=== PATIENT | female | born 1960 | race Caucasian/White ===

== ENCOUNTER 2024-06-08 12:58 | Emergency (ER) | payer OTHER, SELFPAY ==
[2024-06-08 13:00] VITALS: BP 149/77
[2024-06-08 13:12] VITALS: BP 144/74
[2024-06-08 13:18] VITALS: BMI 32.6
[2024-06-08 13:33] LABS: % Basophils 0.8 % (0-2); % Immature Granulocytes 0.2 % (0-0.5); % Lymphocytes 31.9 % (20.5-51.1); % Neutrophils 55.1 % (42.2-75.2); Absolute Basophils 0.1 10^3/uL (0-0.2); Absolute Eosinophils 0.3 10^3/uL (0-0.7); Absolute Lymphocytes 2.1 10^3/uL (1.2-3.4); Absolute Monocytes 0.5 10^3/uL (0.1-0.6); Absolute Neutrophils 3.7 10^3/uL (1.4-6.5); Hematocrit 39.4 % (37.0-47.0); Hemoglobin 13.6 g/dL (12.0-16.0); Mean Corp Hgb Conc. 34.5 g/dL (33.0-37.0); Mean Platelet Volume 9.1 fL (7.4-10.4); Nucleated Red Blood Cells % 0 %; Platelet Count 198 10^3/uL (130-400); Red Blood Cell Count 4.69 10^6/uL (4.20-5.40); Red Cell Dist. Width 12.7 % (11.5-14.5); White Blood Cell Count 6.6 10^3/uL (4.8-10.8)
[2024-06-08 13:44] LABS: INR 0.91; PT 12.6 Sec (11.4-14.6)
--- NOTE | 2024-06-08 13:44 | ED.GENMED ---
History of Present Illness
<Danie Alvarado PA-C - Last Filed: 06/08/24 17:36>
General
Chief Complaint: Chest Pain
Source: patient
Exam Limitations: none
Time Seen by Provider: 06/08/24 13:31
History of Present Illness
History of Present Illness:
63-year-old female presents with onset of crushing chest pain that radiated down the arm that started about 2 and half to 3 hours prior to my exam. She was sitting at her desk working when it started. She now notes there is still pressure on her
chest but it is radiating to her scapula on the left side. No pleuritic component. No recent surgery or travel. She has a history of rheumatoid arthritis. She has a strong family history of cardiac disease. She does not smoke. No other
complaints at this
Past History
<Danie Alvarado PA-C - Last Filed: 06/08/24 17:36>
Past History
ED Past Medical History: Psychiatric (Depression), Other (Patellar dislocations), Other (rheumatoid arthritis, DVT after knee surgery no longer taking Warfarin) and Other (Previous dislocated thumb, ovarian cysts,)
ED Past Surgical History: Appendectomy, Gynecological (Hysterectomy) and Orthopedic
Social History
Tobacco: Former smoker
Alcohol: Occasional
Drug: None
Personal:
Living: with family
Employment: Employed
Family History
Family History: CAD
Phy Exam
<Danie Alvarado PA-C - Last Filed: 06/08/24 17:36>
Physical Exam
Physical Exam:
General: Well-appearing female no acute respiratory distress
HEENT: Normocephalic atraumatic
Heart: Regular rate and rhythm
Lungs: Clear no wheeze
Abdomen is soft nontender nondistended
Extremities: No cyanosis or edema
Scores
<Danie Alvarado PA-C - Last Filed: 06/08/24 17:36>
Heart Score for Chest Pain Patients
STEMI patient?: No
History: Slightly or Non-Suspicious
ECG: Normal
Age: >45 - <65 years
Risk Factors: 1 or 2 Risk Factors
Troponin: </= Normal Limit
Heart Score for Chest Pain Patients: 2
Heart Score Risk: 2.5% MACE over next 6 weeks
Course
<Danie Alvarado PA-C - Last Filed: 06/08/24 17:36>
Orders/Labs/Results
Orders:
Orders
06/08/24 12:59
EKG [Electrocardiogram (*1)] Urgent
Reason for Study: Chest Pain
EKG- Treatment ONCE
06/08/24 13:25
Complete Blood Count/With Diff Urgent
Comprehensive Metabolic Panel Urgent
PT/INR [Prothrombin Time] Urgent
PTT Urgent
Troponin I Urgent
06/08/24 13:42
CT Chest Angio W/wo Iv Contras Urgent
Comment:
Reason For Exam: chest and scapular pain radiating down arm
06/08/24 15:01
Acetaminophen [Tylenol] 1,000 mg PO NOW STA
06/08/24 15:57
Troponin I Urgent
06/08/24 17:27
Ketorolac [Toradol] 15 mg IV NOW STA
Abnormal Lab Results
06/08/24
13:25
BUN 18 H mg/dl
(7-17)
Glucose 123 H mg/dl
(70-99)
06/08/24 13:25
06/08/24 13:25
Vital Signs
Initial and Last Documented VS:
Initial Vital Signs
Temp Pulse Resp BP Pulse Ox
98.5 F 89 20 149/77 95
06/08/24 13:00 06/08/24 13:00 06/08/24 13:00 06/08/24 13:00 06/08/24 13:00
Last Documented Vital Signs
Temp Pulse Resp BP Pulse Ox
98.5 F 76 18 127/70 96
06/08/24 13:00 06/08/24 16:30 06/08/24 16:30 06/08/24 16:00 06/08/24 16:30
<Curtis Lucero MD - Last Filed: 06/08/24 13:54>
Orders/Labs/Results
Orders:
Orders
06/08/24 12:59
EKG [Electrocardiogram (*1)] Urgent
Reason for Study: Chest Pain
EKG- Treatment ONCE
06/08/24 13:25
Complete Blood Count/With Diff Urgent
Comprehensive Metabolic Panel Urgent
PT/INR [Prothrombin Time] Urgent
PTT Urgent
Troponin I Urgent
06/08/24 13:42
CT Chest Angio W/wo Iv Contras Urgent
Comment:
Reason For Exam: chest and scapular pain radiating down arm
06/08/24 15:01
Acetaminophen [Tylenol] 1,000 mg PO NOW STA
06/08/24 15:57
Troponin I Urgent
06/08/24 17:27
Ketorolac [Toradol] 15 mg IV NOW STA
Abnormal Lab Results
06/08/24
13:25
BUN 18 H mg/dl
(7-17)
Glucose 123 H mg/dl
(70-99)
06/08/24 13:25
06/08/24 13:25
Vital Signs
Initial and Last Documented VS:
Initial Vital Signs
Temp Pulse Resp BP Pulse Ox
98.5 F 89 20 149/77 95
06/08/24 13:00 06/08/24 13:00 04/18/25 13:00 06/08/24 13:00 06/08/24 13:00
Last Documented Vital Signs
Temp Pulse Resp BP Pulse Ox
98.5 F 76 18 127/70 96
06/08/24 13:00 06/08/24 16:30 06/08/24 16:30 06/08/24 16:00 06/08/24 16:30
<Danie Alvarado PA-C - Last Filed: 06/08/24 17:36>
MDM/Problems Addressed
Differential Diagnosis Includes:
Chest pain with arm and scapular pain. Consider ACS versus dissection versus PE
EKG through triage shows sinus rhythm with a rate of 92 no ischemic changes
Given symptoms radiating to the scapula and ongoing discomfort CT angio of the chest was ordered. Troponin is pending.
<Danie Alvarado PA-C - Last Filed: 06/08/24 17:36>
*Critical Care Note
Total Time (30-74mins, 75-104mins- exclusive of procedures): Not Applicable
<Danie Alvarado PA-C - Last Filed: 06/08/24 17:36>
Update Note
Update Note:
Initial and repeat troponins undetectable. Given the quality of the discomfort radiating to the shoulder blade did a CT angio of the chest which is negative for acute finding. There were small less than 5 mm nodules. I did notify the patient
this. Toradol given for discomfort. Question possible radiculopathy but either way we will follow-up with cardiology.
ED Attending Note
<Danie Alvarado PA-C - Last Filed: 06/08/24 17:36>
-
Portions of this chart may have been created with voice recognition software.� Occasional wrong word or��sound alike� substitutions may have occurred due to the inherent limitations of voice recognition software.
<Curtis Lucero MD - Last Filed: 06/08/24 13:54>
ED Attending Note
Patient seen and examined by attending physician: Yes
I performed the substantive portion of visit, reviewed & personally made and approve the management plan that is documented in note by myself or JOLYNN.: Yes
ED Attending Note:
63-year-old female relatively sudden onset of left upper chest pressure to the upper arm and scapular area. Started about 11 AM. Continuous although much improved. Had an episode of nausea and vomiting with it. Did not think she was truly short
of breath with it more got upset. No history of same. Patient has had ongoing cough for months. However this pain is not increased with coughing twisting turning or breathing. Symptoms are mild at this time.
GENERAL: Alert and oriented in no apparent distress
EYE: Orbits normal.
NECK: Supple
CARDIAC: Regular rate and rhythm without any obvious murmurs. Good upper extremity pulses
LUNGS: Clear breath sounds,normal
ABDOMEN: Soft, without focal tenderness or distention
NEUROLOGICAL: Alert and oriented , grossly non-focal
SKIN: Warm and dry, no rash or lesion, no discoloration, skin intact. Scar right wrist
MUSCULOSKELETAL: No edema,no deformity.Good color
PSYCH: Normal and appropriate interaction.
Sudden onset nonexertional chest pressure with radiation of the scapula and upper arm. Differential including cardiac dissection PE. Workup in progress. Nonexertional.
Discharge Plan
Departure
Patient Disposition: Home (Routine Discharge)
Date of Disposition: 06/08/24
Time of Disposition: 17:34
Patient with high blood pressure during this ER visit?: No
Discharge Problem:
Chest pain
Instructions: Chest Pain CBC Follow Up
Prescriptions:
No Action
bupropion HCl 150 MG tablet extended release 24 hr
300 mg PO DAILY
dextroamphetamine-amphetamine [Adderall XR] 20 MG capsule,extended release 24hr
40 mg PO DAILY
metformin 500 MG tablet
1,000 mg PO DAILY@1700
sennosides [senna] 1 TABLET tablet
2 tab PO BID 0RF
polyethylene glycol 3350 17 GRAMS powder in packet
17 grams PO DAILY 0RF
magnesium hydroxide 30 ML suspension
30 ml PO DAILYPRN PRN (Reason: constipation) 0RF
docusate sodium 100 MG capsule
100 mg PO BID 0RF
oxycodone 5 MG tablet
5 mg PO Q4HPRN PRN (Reason: moderate-severe pain) Qty: 90 0RF
Rx Instructions:
dx tka
1-2 tabs
ongoing therapy
adalimumab [Humira] 40 MG/0.8 ML syringe kit
40 mg SC Q2W Qty: 0 0RF
Rx Instructions:
when ortho advises
prednisone 10 MG tablet
40 mg PO .TAPER Qty: 14 0RF
Rx Instructions:
4 tabs day1, 3 tabs day2, 2 tabs day3, 1 tab daily x5 days--then stop
famotidine 20 MG tablet
20 mg PO HS Qty: 0 0RF
Referrals:
UNKNOWN - PT DOES,NOT KNOW [Family Provider] -
Activity Restrictions/Additional Instructions:
Continue with Tylenol or ibuprofen for pain. Follow-up with cardiology. Return if worse otherwise
Interventions
Interventions:
*Risk Screen - Suicide Last Done: 06/08/24 13:00
*General Assessment Last Done: 06/08/24 13:00
*Neglect/Abuse Screening Last Done: 06/08/24 13:40
*ED- Fall Risk Assessment Last Done: 06/08/24 13:39
*ED COVID-19 Vaccine History Last Done: 06/08/24 13:39
ED- Cardiac Assessment Last Done: 06/08/24 13:40
Discharge Date and Time
Print Language: YAKUT
[2024-06-08 13:45] LABS: APTT 27.6 Sec (23.4-35.0)
[2024-06-08 13:46] LABS: ALT (SGPT) 24 U/L (0-35); AST (SGOT) 23 U/L (14-36); Albumin 4.8 g/dl (3.5-5.0); Alkaline Phosphatase 76 U/L (38-126); Blood Urea Nitrogen 18 mg/dl (7-17); Calcium 9.6 mg/dl (8.4-10.2); Carbon Dioxide 25 mmol/L (22-30); Chloride 107 mmol/L (98-107); Estimated Creatinine Clearance 68 ml/min; Glucose 123 mg/dl (70-99); Potassium 4.1 mmol/L (3.5-5.1); Sodium 144 mmol/L (135-145); Total Bilirubin 0.7 mg/dl (0.2-1.3); eGFR > 60.00
[2024-06-08 13:57] LABS: Troponin I < 0.012 ng/ml
[2024-06-08 14:00] VITALS: BP 133/75
[2024-06-08 15:00] VITALS: BP 130/70
[2024-06-08] MEDS: TYLENOL 1000 MG PO (15:06)
[2024-06-08 16:00] VITALS: BP 127/70
[2024-06-08 16:34] LABS: Troponin I < 0.012 ng/ml
[2024-06-08 17:00] VITALS: BP 137/75
[2024-06-08] MEDS: TORADOL 15 MG IV (17:45)
== END 2024-06-08 18:59 | disposition home or self-care (01) ==
LOC: EMR 12:58
PROVIDERS: Physician Assistant; EMERGENCY PHYSICIAN Emergency Medicine
DX: R07.89 Other chest pain (principal); M06.9 Rheumatoid arthritis, unspecified; Z82.49 Family history of ischemic heart disease and other diseases of the circulatory system; Z86.718 Personal history of other venous thrombosis and embolism; Z87.891 Personal history of nicotine dependence; Z90.49 Acquired absence of other specified parts of digestive tract; Z90.710 Acquired absence of both cervix and uterus
CPT/HCPCS: 99284; 71275; 80053; 84484; 85025; 85610; 85730; 93005; Q9967

== ENCOUNTER 2024-07-23 10:34 | Inpatient (IN) | payer OTHER, SELFPAY ==
[2024-07-23] VITALS (11 sets, daily range): BP systolic 79–137; BP diastolic 14–73; BMI 32.2; BMI 31.8
--- NOTE | 2024-07-23 07:40 | ED.GENMED ---
History of Present Illness
General
Chief Complaint: Abdominal Pain
Source: patient
Exam Limitations: none
Time Seen by Provider: 07/23/24 07:19
History of Present Illness
History of Present Illness:
64yoF with a history of rheumatoid arthritis receiving Simponi Aria infusions presenting with her for evaluation of rectal pain. Symptoms began 8 days ago with fevers. She has been experiencing fevers of 101-102 throughout the week. Home
COVID and flu tests were negative. She started to have rectal pain 3 days ago that is worse with sitting. She does not believe she is constipated and had a normal bowel movement yesterday. She started having worsening rectal pain this morning so
decided to come to the ED. Her fevers do seem to be better today. She denies any URI symptoms, vomiting, dysuria, rectal pain, rashes. No known sick contacts or recent travel. Previous abdominal surgeries include an appendectoy, cholecystectomy,
hysterectomy, and bladder lift procedure.
Past History
Past History
ED Past Medical History: Psychiatric (Depression), Other (Patellar dislocations), Other (rheumatoid arthritis, DVT after knee surgery no longer taking Warfarin) and Other (Previous dislocated thumb, ovarian cysts,)
ED Past Surgical History: Appendectomy, Gynecological (Hysterectomy) and Orthopedic
Social History
Tobacco: Former smoker
Alcohol: Occasional
Drug: None
Personal:
Living: with family
Employment: Employed
Family History
Family History: CAD
Phy Exam
General Physical Exam
General Presentation: well appearing and no apparent distress
General Skin: warm and dry
General Habitus: normal
General Mental: alert
ENT Exam
ENT Exam: normocephalic
Cardiovascular Exam
Cardiovascular Exam: regular rate/rhythm and no murmur
Pulmonary Exam
Pulmonary Exam: lungs clear, no respiratory distress, no rales, no crackles, no rhonchi and no wheezing
Gastrointestinal Exam
Gastrointestinal Exam: soft, non distended and other (+LLQ tenderness. Abdomen soft without guarding.)
Rectal Exam: other (Soft light brown stool on rectal exam. No impaction palpated. No visualized perirectal abscess. Pain elicited with FABIO.)
Neurological Exam
Neurological Exam: alert
[place] Coma Scale
Eye Opening: Spontaneous
Verbal Response: Oriented
Motor Response: Obeys Commands
GCS Total Score: 15
Skin Exam
Skin Exam: normal color and warm/dry
Psychiatric Exam
Psychiatric Exam: normal mood/affect
Course
Orders/Labs/Results
Orders:
Orders
07/23/24 07:36
CT Abd/pelvis W Iv Cont Urgent
Comment:
Reason For Exam: LLQ pain, rectal pain, fever
Urinalysis Reflex To Culture Urgent
Date Specimen was Collected: 07/23/24
Time Specimen was Collected: 07:45
0.9% Sodium Chloride 1000 ml [Nss] 1,000 ml IV BOLUS
07/23/24 07:46
Complete Blood Count/With Diff Urgent
Comprehensive Metabolic Panel Urgent
Lactate Level [Lactic Acid] Urgent
Lipase Urgent
Blood Culture Q30M
TRISHA Source: Blood/Venous
Specimen Description:
Blood Culture Q30M
TRISHA Source: Blood/Venous
Specimen Description:
07/23/24 09:08
CefTRIAXone [Rocephin] 2,000 mg IV NOW STA
HYDROmorphone [Dilaudid] 0.5 mg IV NOW STA
MetroNIDAZOLE 500 MG/100 ML [Flagyl 500 mg] 100 ml IV NOW
Abnormal Lab Results
07/23/24
07:46
RBC 3.97 L 10^6/uL
(4.20-5.40)
Hgb 11.3 L g/dL
(12.0-16.0)
Hct 34.3 L %
(37.0-47.0)
MCHC 32.9 L g/dL
(33.0-37.0)
Lymphocytes % 20.4 L %
(20.5-51.1)
Chloride 112 H mmol/L
(98-107)
Glucose 135 H mg/dl
(70-99)
Lactic Acid 2.3 H mmol/L
(0.7-2.0)
07/23/24 07:46
07/23/24 07:46
Vital Signs
Initial and Last Documented VS:
Initial Vital Signs
Temp Pulse Resp BP Pulse Ox
98.5 F 95 16 103/73 98
07/23/24 06:56 07/23/24 06:56 07/23/24 06:56 07/23/24 06:56 07/23/24 06:56
Last Documented Vital Signs
Temp Pulse Resp BP Pulse Ox
98.5 F 95 16 106/59 96
07/23/24 06:56 07/23/24 06:56 07/23/24 06:56 07/23/24 09:00 07/23/24 09:30
MDM/Problems Addressed
Differential Diagnosis Includes:
64yoF here with fevers of 101-102 over the past week and rectal pain x 3 days. Pain worsening today and she is having a hard time sitting. Hx of RA on biologics. Temperature 98.5 in triage and temp 97.6 on initial exam. She appears uncomfortable but
is non-toxic. There is LLQ tenderness on exam. Pain with rectal exam. No clinical evidence of fecal impaction and no visualized abscess noted. Differential diagnosis includes but is not limited to: diverticulitis, constipation, perianal abscess
Initial ED plan: Check abdominal labs, lactate, blood cultures, UA, and CT abdomen with IV contrast. IV fluid bolus.
*Critical Care Note
Total Time (30-74mins, 75-104mins- exclusive of procedures): Not Applicable
Update Note
Update Note:
CT shows diverticulitis with a small adjacent abscess. White count normal. Lactate 2.3. IV Rocephin and Flagyl ordered. Patient admitted for further management.
ED Attending Note
-
Portions of this chart may have been created with voice recognition software.� Occasional wrong word or��sound alike� substitutions may have occurred due to the inherent limitations of voice recognition software.
Discharge Plan
Departure
Patient Disposition: Admit
Date of Disposition: 07/23/24
Time of Disposition: 09:10
Presentation/result/management discussed w/ accepting MD/DO: Hospitalist
Discharge Problem:
Diverticulitis of intestine with abscess
Prescriptions:
No Action
acetaminophen [Tylenol] 325 mg Tablet
650 mg PO DAILYPRN PRN (Reason: mild pain)
Theragen Tablet
1 tab PO DAILY
valsartan 160 mg Tablet
160 mg PO DAILY
Referrals:
Rick Parnell MD [Family Provider, Family Practice]
Interventions
Interventions:
*Risk Screen - Suicide Last Done: 07/23/24 06:57
*General Assessment Last Done: 07/23/24 07:32
*Neglect/Abuse Screening Last Done: 07/23/24 06:57
*ED- Fall Risk Assessment Last Done: 07/23/24 07:32
*ED COVID-19 Vaccine History Last Done: 07/23/24 07:32
DD-Zgcdmg-Epptuvncou Assessment Last Done: 07/23/24 07:32
Discharge Date and Time
Print Language: MICRONESIAN
[2024-07-23] MEDS: NSS 1000 IV (07:54)
[2024-07-23 08:01] LABS: % Basophils 0.5 % (0-2); % Eosinophils 2.5 % (0-6); % Immature Granulocytes 0.4 % (0-0.5); % Lymphocytes 20.4 % (20.5-51.1); % Monocytes 6.8 % (1.7-9.3); % Neutrophils 69.4 % (42.2-75.2); Absolute Basophils 0.1 10^3/uL (0-0.2); Absolute Eosinophils 0.2 10^3/uL (0-0.7); Absolute Lymphocytes 1.9 10^3/uL (1.2-3.4); Absolute Monocytes 0.6 10^3/uL (0.1-0.6); Absolute Neutrophils 6.4 10^3/uL (1.4-6.5); Hematocrit 34.3 % (37.0-47.0); Hemoglobin 11.3 g/dL (12.0-16.0); Mean Corp Hgb Conc. 32.9 g/dL (33.0-37.0); Mean Corpuscular Hgb 28.5 pg (27.0-31.0); Mean Corpuscular Volume 86.4 fL (81.0-99.0); Mean Platelet Volume 8.9 fL (7.4-10.4); Nucleated Red Blood Cells % 0 %; Platelet Count 267 10^3/uL (130-400); Red Blood Cell Count 3.97 10^6/uL (4.20-5.40); Red Cell Dist. Width 12.3 % (11.5-14.5); White Blood Cell Count 9.3 10^3/uL (4.8-10.8)
[2024-07-23 08:11] LABS: ALT (SGPT) 28 U/L (0-35); AST (SGOT) 21 U/L (14-36); Albumin 4.1 g/dl (3.5-5.0); Alkaline Phosphatase 72 U/L (38-126); Blood Urea Nitrogen 12 mg/dl (7-17); Calcium 9.3 mg/dl (8.4-10.2); Carbon Dioxide 28 mmol/L (22-30); Chloride 112 mmol/L (98-107); Estimated Creatinine Clearance 75 ml/min; Glucose 135 mg/dl (70-99); Lipase 42 U/L (23-300); Sodium 145 mmol/L (135-145); Total Bilirubin 0.6 mg/dl (0.2-1.3); Total Protein 6.4 g/dl (6.3-8.2); eGFR > 60.00
[2024-07-23 08:12] LABS: Lactic Acid 2.3 mmol/L (0.7-2.0)
[2024-07-23] MEDS: ROCEPHIN 2000 MG IV (09:28)
[2024-07-23] MEDS: DILAUDID 0.5 MG IV ×3 (09:28→17:22)
[2024-07-23] MEDS: FLAGYL 500 MG 100 IV ×2 (09:28→17:14)
--- NOTE | 2024-07-23 09:52 | HPS.HSE ---
Family Physician
-
Family Physician: Rick Parnell
Chief Complaint
-
Fever, rectal pain
History of Present Illness
64-year-old female with a past medical history of rheumatoid arthritis on immunologics, hypertension, depression, and solitary kidney presents with a 1 week history of fever. Patient reports having intermittent fevers for 1 week. She was due for
her immunologic, Simponi Aria infusion, on . However, she had a fever and it was not given. She then started to have lower pelvic pain on Tuesday. Last night, she developed rectal pain. She reports nausea. She denies vomiting, denies
diarrhea. No chest pain, no shortness of breath. She also reports myalgias, arthralgias, and poor oral intake. No lightheadedness, no dizziness.
Medical History
Past Medical History
Past Medical History: Reports Other
Additional Past Medical History:
Essential hypertension
Depression
Attention deficit disorder
Solitary kidney
Patellar dislocation
Rheumatoid arthritis
DVT after surgery
Dislocated thumb
Ovarian cyst
Umbilical hernia
Past Surgical History: Reports Other
Additional Past Surgical History:
Hysterectomy
Cholecystectomy
Appendectomy
Cystocele repair
Arthroscopic right knee surgery
Ulnar collateral ligament repair of the thumb
Arthroscopic right shoulder surgery
Breast reduction surgery
Right total knee arthroplasty
Left total knee arthroplasty
Social History
Tobacco: Former Smoker
Alcohol: Occasional
Drug: None
Personal:
Living: With Family
Family History
Family History: Not pertinent
Allergies / Home Medications
Allergies reflects when Allergies were last updated in [facility].
Home Medications with original date entered in [facility]
Allergy/Medication List:
Allergies
Allergy/AdvReac Type Severity Reaction Status Date / Time
celecoxib Allergy Hives;itchi Verified 06/08/24 13:01
ng
prochlorperazine (From Allergy Unknown Verified 06/08/24 13:01
Compazine)
prochlorperazine edisylate Allergy dystonic Verified 06/08/24 13:01
(From Compazine) reaction
prochlorperazine maleate Allergy Dystonic Verified 06/08/24 13:01
(From Compazine) Reaction
amoxicilin Allergy severe Uncoded 06/08/24 13:01
vomiting/diarrhea
Home Medications Table - record
�Medication �Instructions �Recorded �Confirmed
acetaminophen 325 mg tablet 650 mg PO DAILYPRN PRN mild pain 07/23/24 07/23/24
(Tylenol)
therapeutic multivitamin 1 tab PO DAILY 07/23/24 07/23/24
valsartan 160 mg tablet 160 mg PO DAILY 07/23/24 07/23/24
Review of Systems
-
A 12 point ROS was completed and negative except as noted: Yes
Physical Exam
Vital Signs
Vital Signs
Temp Pulse Resp BP Pulse Ox
98.5 F 95 16 106/59 96
07/23/24 06:56 07/23/24 06:56 07/23/24 06:56 07/23/24 09:00 07/23/24 09:30
Physical Exam
General: No Apparent Distress
HEENT: NormoCephalic, Anicteric and Moist mucous membranes
Respiratory: Clear
Cardiac: S1/S2 and Regular Rhythm
GI: Soft, Non Distended and Tender
Musculoskeletal: No Clubbing, No Cyanosis and No Edema
Skin: Warm
Neuro: Awake, Alert and Oriented
Psych: Calm
Laboratory Results
-
07/23/24 07:46
07/23/24 07:46
Laboratory Results
Lactic Acid 2.3 mmol/L (0.7-2.0) H 07/23/24 07:46
Total Bilirubin 0.6 mg/dl (0.2-1.3) 07/23/24 07:46
AST 21 U/L (14-36) 07/23/24 07:46
ALT 28 U/L (0-35) 07/23/24 07:46
Alkaline Phosphatase 72 U/L (38-126) 07/23/24 07:46
Lipase 42 U/L (23-300) 07/23/24 07:46
Impression/Plan
-
HPI: 64-year-old female with a past medical history of rheumatoid arthritis on immunologics, hypertension, depression, and solitary kidney presents with a 1 week history of fever. Patient reports having intermittent fevers for 1 week. She was due
for her immunologic, Simponi Aria infusion, on . However, she had a fever and it was not given. She then started to have lower pelvic pain on Tuesday. Last night, she developed rectal pain. She reports nausea. She denies vomiting, denies
diarrhea. No chest pain, no shortness of breath. She also reports myalgias, arthralgias, and poor oral intake. No lightheadedness, no dizziness.
Assessment/plan:
#Acute sigmoid diverticulitis with small probable associated abscess formation
CT of the abdomen and pelvis shows acute mid sigmoid colon diverticulitis with small probable associated abscess formation, pancreatic fatty infiltration progress, right renal cyst, left ovarian cyst
Status post Rocephin and Flagyl in the ER
Treat with levofloxacin and Flagyl, IV fluids, consult colorectal surgery
Clear liquid diet for now, Dilaudid/Zofran as needed
Check a.m. EKG for QTc monitoring
#Elevated lactic acid without septic shock
Status post IV fluids, continue IV fluids
#History essential hypertension
Blood pressure soft in the ER, will hold home losartan for now
#Rheumatoid arthritis
Hold Simponi Aria infusions while acutely ill
#Left ovarian cyst
#Right renal cyst
#Pancreatic fatty infiltration
Monitor
#History of DVT after surgery
DVT prophylaxis�subcu Lovenox
Full code
Total time spent to see the patient on the floor, examine the patient, review data and lab results, discuss treatment plan with patient, nursing staff around 65 minutes.
--- NOTE | 2024-07-23 12:17 | CM ---
Reviewed chart and met with pt at bedside in ED. Lives with her , single story home, [address]. Does not have any equipment, receives infusions at [facility] in the [place]. No history of VN or SNF.
PCP: Rick Parnell
Pharmacy: [facility]
Plan: Home, no needs, pending ongoing medical evaluation
--- NOTE | 2024-07-23 12:56 | CON.CRS ---
Consultation
-
Date/Time Consultation Requested: 07/23/2024, 10:14
Date/Time Consultation Performed: 07/23/2024, 14:15
Requesting Provider: Sandeep Johnson MD
Performing Provider: Curtis Samano MD
Reason for Consultation: diverticulitis
Medical History
-
Chief Complaint: Abdominal pain
History of Present Illness:
64-year-old female with a history of rheumatoid arthritis currently on infusions presents to [facility] ER on 07/23/2024 complaining of rectal pain. Her symptoms began 8 days ago and she was febrile at that time. She has had fevers throughout
the week ranging from 101.0-102.0. 3 days ago she developed rectal pain that is worse with sitting. Previous abdominal surgeries include an appendectomy, cholecystectomy, hysterectomy, and bladder lift procedure. In the ER her vital signs are
normal. She remains afebrile. WBC is 9.3. CT of the abdomen and pelvis shows acute mild sigmoid diverticulitis. Probable small abscess formation around the mid sigmoid colon consistent with acute diverticulitis. This roughly measures 2.2 x 1.3
x 2.3 cm.
Past Medical History
Past Medical History: Other (Depression, patellar dislocation, rheumatoid arthritis, history of DVT postop from knee surgery, previously dislocated thumb, ovarian cyst)
Past Surgical History: Other (Appendectomy, hysterectomy, orthopedic)
Social History
Tobacco: Former Smoker
Alcohol: Occasional
Drug: None
Personal:
Family History
Family History: Reviewed & Not Pertinent
Allergies / Home Medications
Allergy/AdvReac Type Severity Reaction Status Date / Time
celecoxib Allergy Hives;itchi Verified 06/08/24 13:01
ng
prochlorperazine (From Allergy Unknown Verified 06/08/24 13:01
Compazine)
prochlorperazine edisylate Allergy dystonic Verified 06/08/24 13:01
(From Compazine) reaction
prochlorperazine maleate Allergy Dystonic Verified 06/08/24 13:01
(From Compazine) Reaction
amoxicilin Allergy severe Uncoded 06/08/24 13:01
vomiting/diarrhea
�Medication �Instructions �Recorded �Confirmed �Type
acetaminophen 325 mg tablet 650 mg PO DAILYPRN PRN mild pain 07/23/24 07/23/24 History
(Tylenol)
therapeutic multivitamin 1 tab PO DAILY 07/23/24 07/23/24 History
valsartan 160 mg tablet 160 mg PO DAILY 07/23/24 07/23/24 History
Review of Systems
-
History Source: Patient
Constitutional: Fever
Abdomen/GI: Other (Rectal pain)
A 10 point review of systems was completed, and was negative except as per HPI.
Physical Exam
Vital Signs
Temp 98.5 F 07/23/24 06:56
Pulse 95 07/23/24 06:56
Resp Rate 16 07/23/24 06:56
Blood pressure 108/65 07/23/24 10:00
SaO2 92 07/23/24 11:45
07/22/24 07/23/24 07/24/24
06:59 06:59 06:59
Actual Weight 84.9 kg
Body Mass Index (BMI) 32.2
Lab Results / Allergies
07/23/24 07:46
07/23/24 07:46
WBC 9.3 10^3/uL (4.8-10.8) 07/23/24 07:46
Hgb 11.3 g/dL (12.0-16.0) L 07/23/24 07:46
Hct 34.3 % (37.0-47.0) L 07/23/24 07:46
Plt Count 267 10^3/uL (130-400) 07/23/24 07:46
Abs Immat Gran (auto) 0.0 10^3/uL (0-0.05) 07/23/24 07:46
Neutrophils % 69.4 % (42.2-75.2) 07/23/24 07:46
Allergy/AdvReac Type Severity Reaction Status Date / Time
celecoxib Allergy Hives;itchi Verified 06/08/24 13:01
ng
prochlorperazine (From Allergy Unknown Verified 06/08/24 13:01
Compazine)
prochlorperazine edisylate Allergy dystonic Verified 06/08/24 13:01
(From Compazine) reaction
prochlorperazine maleate Allergy Dystonic Verified 06/08/24 13:01
(From Compazine) Reaction
amoxicilin Allergy severe Uncoded 06/08/24 13:01
vomiting/diarrhea
Physical Exam
General: Well Developed, Well Nourished and No Apparent Distress
GI: Soft, Non Distended and Tender (Mild left lower quadrant tenderness)
Skin: Warm and Dry
Neuro: AO x 3
Data Reviewed
-
CT Scan: Image Personally Visualized and interpreted, Report Reviewed by me and Discussed with Patient
Labs: Labs Reviewed by me, Discussed with Physician and Discussed with Patient
Old Records: Reviewed
Assessment / Plan
-
Assessment: 64-year-old female with a history of rheumatoid arthritis currently on immunosuppression infusions presents to [facility] complaining of fevers for about the past week as well as rectal pain, found to have sigmoid diverticulitis
with a developing abscess
Plan:
- On clear liquids with IV fluids. If nausea/vomiting or increasing pain, back down to NPO.
- IV antibiotics
- Okay for DVT prophylaxis from our perspective
- Follow exam and lab work
- No plans for surgery at this time. If she worsens she will require a colectomy with colostomy creation.
[2024-07-23 13:47] LABS: Urine Albumin 1+ (Neg - Trace); Urine Bilirubin Negative (Negative); Urine Character Clear (Clear); Urine Color Yellow; Urine Glucose Negative (Negative); Urine Ketone Negative (Negative); Urine Leukocyte Negative (Negative); Urine Nitrite Negative (Negative); Urine Occult Blood Negative (Negative); Urine Urobilinogen Negative (Neg - 1+)
[2024-07-23] MEDS: LEVAQUIN 150 IV (14:00)
[2024-07-23 14:15] LABS: Urine Red Blood Cell 0-2 /HPF (0-2); Urine Squamous Cell 0-2 /LPF (Few); Urine White Cell 0-2 /HPF (0-5)
[2024-07-23 14:16] LABS: Urine Bacteria Few (Negative)
[2024-07-23] MEDS: 0.45%NACL 1000 IV (16:01)
--- NOTE | 2024-07-23 16:19 | PTCARENOTE ---
Received pt from ED, pt ambulated from stretcher to bed. Pt c/o 07/31 pain, denying pain meds at this time. AAOx3, VSS.
[2024-07-23] MEDS: LOVENOX 40 MG SC (17:14)
--- NOTE | 2024-07-23 18:59 | CON.MD ---
Consultation - Medical
-
Full consult to be dictated.
History, vitals, labs, imaging reviewed. Patient seen and examined.
Assessment/plan: 64-year-old female medically immunosuppressed due to Simponi for RA (last dose held) with no prior history of diverticulitis here with abdominal pain and imaging showing sigmoid diverticulitis with a small abscess. The abscess is
small and centrally located making it unlikely to be amenable to IR drainage. Patient afebrile with reasonable vitals and normal WBC. On exam she is fairly tender in the left lower quadrant. She admits to a prior colonoscopy perhaps 15 years ago.
She does not recall polyps being found. She does have family history of polyps. I discussed situation with the patient and her at the bedside. Agree with maximal medical measures including diet restriction, IV fluid hydration, IV
antibiotics and serial exams. Her immunosuppression makes her at higher risk for failure of medical therapy and recurrent attacks. No need for urgent surgical intervention at this point in time, however that may change depending on progress. Will
follow along. If she is discharged without the need for surgical invention, she will need to follow-up with me for outpatient office evaluation and likely discussion regarding option of interval sigmoidectomy preceded by colonoscopy.
Thanks.
Consultation
-
Date/Time Consultation Requested: 07/23/2024.
Date/Time Consultation Performed: 07/23/2024.
Reason for Consultation: Diverticulitis
[2024-07-23] MEDS: ROXICODONE 10 MG PO (23:08)
[2024-07-24] MEDS: FLAGYL 500 MG 100 IV ×3 (01:15→17:18)
[2024-07-24 05:22] VITALS: BMI 32.2
[2024-07-24] MEDS: 0.45%NACL 1000 IV (05:38)
[2024-07-24 07:00] VITALS: BP 109/64
[2024-07-24 07:56] LABS: Hematocrit 31.9 % (37.0-47.0); Hemoglobin 10.6 g/dL (12.0-16.0); Mean Corp Hgb Conc. 33.2 g/dL (33.0-37.0); Mean Corpuscular Hgb 28.3 pg (27.0-31.0); Mean Corpuscular Volume 85.1 fL (81.0-99.0); Platelet Count 257 10^3/uL (130-400); Red Blood Cell Count 3.75 10^6/uL (4.20-5.40); Red Cell Dist. Width 12.4 % (11.5-14.5); White Blood Cell Count 7.3 10^3/uL (4.8-10.8)
[2024-07-24 08:42] LABS: Blood Urea Nitrogen 9 mg/dl (7-17); Calcium 8.8 mg/dl (8.4-10.2); Carbon Dioxide 23 mmol/L (22-30); Chloride 111 mmol/L (98-107); Estimated Creatinine Clearance 75 ml/min; Glucose 95 mg/dl (70-99); Sodium 140 mmol/L (135-145); eGFR > 60.00
--- NOTE | 2024-07-24 09:32 | W.PN.HOSP.TC ---
Today's Communication/Plan
-
see bold
Assessment / Plan
Assessment / Plan
HPI: 64-year-old female with a past medical history of rheumatoid arthritis on immunologics, hypertension, depression, and solitary kidney presents with a 1 week history of fever. Patient reports having intermittent fevers for 1 week. She was due
for her immunologic, Simponi Aria infusion, on . However, she had a fever and it was not given. She then started to have lower pelvic pain on Tuesday. Last night, she developed rectal pain. She reports nausea. She denies vomiting, denies
diarrhea. No chest pain, no shortness of breath. She also reports myalgias, arthralgias, and poor oral intake. No lightheadedness, no dizziness.
Assessment/plan:
#Acute sigmoid diverticulitis with small probable associated abscess formation
CT of the abdomen and pelvis shows acute mid sigmoid colon diverticulitis with small probable associated abscess formation, pancreatic fatty infiltration progress, right renal cyst, left ovarian cyst
Status post Rocephin and Flagyl in the ER
Appreciate colorectal surgery input, continue levofloxacin and Flagyl
Currently on full liquid diet
#Elevated lactic acid without septic shock
Status post IV fluids, cap IV fluids today
#History essential hypertension
Blood pressure soft in the ER, will hold home losartan for now
#Rheumatoid arthritis
Hold Simponi Aria infusions while acutely ill
#Left ovarian cyst
#Right renal cyst
#Pancreatic fatty infiltration
Monitor
#Obesity due to excess calories
Affects all aspects of care
#History of DVT after surgery
DVT prophylaxis�subcu Lovenox
Full code
Total time spent to see the patient on the floor, examine the patient, review data and lab results, discuss treatment plan with patient, nursing staff around 38 minutes.
Physical Exam
General: Obese, no acute distress
HEENT: Normocephalic, Atraumatic, EOMI, MMM
Respiratory: Clear to Auscultation bilaterally
Cardiac: Normal S1/S2, Regular Rate and Rhythm
GI: Soft, mild tenderness in the left lower quadrant, Nondistended, Normal Bowel Sounds
Extremities: No Clubbing, Cyanosis, or Edema
Neuro: Nonfocal/Grossly Intact
Psych: Calm, Cooperative
Derm: No Visible lesions
Anticipated Discharge: Within 24 hours
Subjective/Interval History
-
Date of Service: July 24, 2024
Patient reports feeling better. Lower abdominal pain and rectal pain much improved. No fever, no chest pain, no shortness of breath. No nausea, no vomiting, no constipation, no diarrhea.
Objective Data
-
Labs:
Laboratory Results
07/24/24
06:36
WBC 7.3
Hgb 10.6 L
Hct 31.9 L
Plt Count 257
Sodium 140
Potassium 4.0
Chloride 111 H
Carbon Dioxide 23
BUN 9
Creatinine 0.8
Glucose 95
Calcium 8.8
Vital Signs:
Vital Signs
Temp Pulse Resp BP Pulse Ox
98.6 F 78 16 109/64 96
07/24/24 07:00 07/24/24 07:00 07/24/24 07:00 07/24/24 07:00 07/24/24 07:00
I&O
07/23/24 07/24/24 07/25/24
06:59 06:59 06:59
Intake Total 1839
Balance 1839
[2024-07-24] MEDS: LEVAQUIN 150 IV (13:44)
--- NOTE | 2024-07-24 14:30 | W.PN.CRS1 ---
Today's Communication / Plan
-
advance to fulls
Assessment/Plan
-
64-year-old female medically immunosuppressed due to Simponi for RA (last dose held) with no prior history of diverticulitis here with abdominal pain and imaging showing sigmoid diverticulitis with a small abscess.
WBC 7.3 (9.3), vitals normal
-Advance diet to full liquids
-Trend exam/labs
-OOB as tolerated
-No plans for OR at this time. If she worsens, she will require a colectomy with colostomy creation
-Continue IV antibiotics
-Agree with Lovenox for DVT prophylaxis
-Follow-up with Dr. Samano for outpatient office evaluation (if no surgery this admission) and likely discussion regarding option of interval sigmoidectomy preceded by colonoscopy.
Subjective Data
Subjective Data
Date of Service: July 24, 2024
Patient states she feels much better today. She has no pain, She denies nausea or vomiting. She has no flatus or bowel movements yet but she has been burping. She is hungry.
Objective Data
-
Vital Signs
Temp Pulse Resp BP Pulse Ox
98.6 F 78 16 109/64 96
07/24/24 07:00 07/24/24 07:00 07/24/24 07:00 07/24/24 07:00 07/24/24 07:00
Intake & Output
07/23/24 07/24/24 07/25/24
06:59 06:59 06:59
Intake Total 1839 1840
Balance 1839 184
Intake:
Oral fluids 940 / 940
Amount of oral supplement(s) 0 / 0
consumed
IV fluids (Total) 900 / 900
IV piggybacks 0 / 0
Other:
Number of approximated MODERATE 2
amounts of urine
Lab Results
07/24/24 06:36
07/24/24 06:36
Physical Exam
-
General: No Acute Distress and AOx3
Abdomen: Soft, Non Distended and Non Tender
Skin: Warm and Dry
Incision: Clear, Dry, Intact
[2024-07-24 14:56] VITALS: BP 111/57
[2024-07-24] MEDS: LOVENOX 40 MG SC (17:19)
[2024-07-24 23:25] VITALS: BP 119/56
[2024-07-25] MEDS: FLAGYL 500 MG 100 IV ×2 (01:08→09:01)
[2024-07-25 07:25] VITALS: BP 140/65
--- NOTE | 2024-07-25 07:52 | W.PN.HOSP.TC ---
Today's Communication/Plan
-
Cleared by colorectal surgery for discharge today
Assessment / Plan
Assessment / Plan
HPI: 64-year-old female with a past medical history of rheumatoid arthritis on immunologics, hypertension, depression, and solitary kidney presents with a 1 week history of fever. Patient reports having intermittent fevers for 1 week. She was due
for her immunologic, Simponi Aria infusion, on . However, she had a fever and it was not given. She then started to have lower pelvic pain on Tuesday. Last night, she developed rectal pain. She reports nausea. She denies vomiting, denies
diarrhea. No chest pain, no shortness of breath. She also reports myalgias, arthralgias, and poor oral intake. No lightheadedness, no dizziness.
Assessment/plan:
#Acute sigmoid diverticulitis with small probable associated abscess formation
CT of the abdomen and pelvis shows acute mid sigmoid colon diverticulitis with small probable associated abscess formation, pancreatic fatty infiltration progress, right renal cyst, left ovarian cyst
Status post Rocephin and Flagyl in the ER
Appreciate colorectal surgery input, resolving on levofloxacin and Flagyl
Tolerating low residue diet, medically stable for discharge on oral levofloxacin and Flagyl to complete a 7-day course
Follow-up with PCP in 1 week, colorectal surgery in the office in 2-3 weeks
#Elevated lactic acid without septic shock
Status post IV fluids
#History essential hypertension
Blood pressure normalizing, can resume losartan upon discharge
#Constipation
Will discharge on Dulcolax suppository and laxatives
#Rheumatoid arthritis
Hold Simponi Aria infusions while acutely ill
#Left ovarian cyst
#Right renal cyst
#Pancreatic fatty infiltration
Monitor
#Obesity due to excess calories
Affects all aspects of care
#History of DVT after surgery
DVT prophylaxis�subcu Lovenox
Full code
Physical Exam
General: Obese, no acute distress
HEENT: Normocephalic, Atraumatic, EOMI, MMM
Respiratory: Clear to Auscultation bilaterally
Cardiac: Normal S1/S2, Regular Rate and Rhythm
GI: Soft, nontender, Nondistended, Normal Bowel Sounds
Extremities: No Clubbing, Cyanosis, or Edema
Neuro: Nonfocal/Grossly Intact
Psych: Calm, Cooperative
Derm: No Visible lesions
Anticipated Discharge: Today
Subjective/Interval History
-
Date of Service: July 25, 2024
Patient reports resolution of abdominal pain. She is tolerating a low residue diet without any pain. No fever, no vomiting. No chest pain, no shortness of breath. Reports constipation, last bowel movement 4 days ago. She is eager for discharge
today.
Objective Data
-
Vital Signs:
Vital Signs
Temp Pulse Resp BP Pulse Ox
98.6 F 64 16 140/65 97
07/25/24 07:25 07/25/24 07:25 07/25/24 07:25 07/25/24 07:25 07/25/24 07:25
I&O
07/24/24 07/25/24 07/26/24
06:59 06:59 06:59
Intake Total 1839 540 / 540
Balance 1839 540 / 540
--- NOTE | 2024-07-25 10:27 | W.PN.CRS1 ---
Today's Communication / Plan
-
low residue diet
no plans for surgery
Assessment/Plan
-
64-year-old female medically immunosuppressed due to Simponi for RA (last dose held) with no prior history of diverticulitis here with abdominal pain and imaging showing sigmoid diverticulitis with a small abscess.
No labs, vitals normal
-Advance diet low residue
-Trend exam/labs
-OOB as tolerated
-Continue IV antibiotics
-Agree with Lovenox for DVT prophylaxis
-Follow-up with Dr. Samano for outpatient office evaluation (if no surgery this admission) and likely discussion regarding option of interval sigmoidectomy preceded by colonoscopy.
Subjective Data
Subjective Data
Date of Service: July 25, 2024
Patient states she is feeling well. She has no complaints. She has no nausea or vomiting. She would like to go home.
Objective Data
-
Vital Signs
Temp Pulse Resp BP Pulse Ox
98.6 F 64 16 140/65 97
07/25/24 07:25 07/25/24 07:25 07/25/24 07:25 07/25/24 07:25 07/25/24 07:25
Intake & Output
07/24/24 07/25/24 07/26/24
06:59 06:59 06:59
Intake Total 1840 / 1840 540 / 540
Balance 1840 / 1840 540 / 540
Intake:
Oral fluids 940 / 940 540 / 540
Amount of oral supplement(s) 0 / 0
consumed
IV fluids (Total) 900 / 900
IV piggybacks 0 / 0
Other:
Number of approximated MODERATE 2
amounts of urine
Lab Results
07/24/24 06:36
07/24/24 06:36
Physical Exam
-
General: No Acute Distress and AOx3
Abdomen: Soft, Non Distended and Non Tender
Skin: Warm and Dry
--- NOTE | 2024-07-25 11:08 | CM ---
Chart reviewed. Patient stable for d/c today
No CM needs identified at this time
Plan: Home, no needs
[2024-07-25] MEDS: LEVAQUIN 750 MG PO (11:27)
[2024-07-25 11:55] VITALS: BP 133/75
--- NOTE | 2024-07-25 13:51 | PTCARENOTE ---
rn flow coater slate- Attempted to call patient and informed her that she left her paperwork in the room. NO answer, left message to call back.
== END 2024-07-25 12:03 | disposition home or self-care (01) | DRG 392 ==
LOC: 4 WEST ACU 10:34
PROVIDERS: Physician Assistant; ADMITTING PHYSICIAN Family Medicine; CONSULT PHYSICIAN Surgery; EMERGENCY PHYSICIAN Emergency Medicine; FAMILY PHYSICIAN Family Medicine
DX: K57.20 Diverticulitis of large intestine with perforation and abscess without bleeding (principal); D84.821 Immunodeficiency due to drugs; Z87.891 Personal history of nicotine dependence; M06.9 Rheumatoid arthritis, unspecified; E66.09 Other obesity due to excess calories; Z68.32 Body mass index [BMI] 32.0-32.9, adult
CPT/HCPCS: 74177; 80048; 80053; 81003; 81015; 83605; 83690; 85025; 85027; 87040; 93005; 96365; 96375; 99285; Q9967

== ENCOUNTER 2024-07-30 22:11 | Inpatient (IN) | payer OTHER, SELFPAY ==
[2024-07-30 13:17] VITALS: BP 117/70
[2024-07-30 13:42] LABS: % Basophils 0.6 % (0-2); % Eosinophils 2.1 % (0-6); % Immature Granulocytes 0.5 % (0-0.5); % Monocytes 8.3 % (1.7-9.3); % Neutrophils 69.5 % (42.2-75.2); Absolute Basophils 0.1 10^3/uL (0-0.2); Absolute Eosinophils 0.2 10^3/uL (0-0.7); Absolute Lymphocytes 1.5 10^3/uL (1.2-3.4); Absolute Monocytes 0.6 10^3/uL (0.1-0.6); Absolute Neutrophils 5.4 10^3/uL (1.4-6.5); Hematocrit 38.1 % (37.0-47.0); Hemoglobin 12.9 g/dL (12.0-16.0); Mean Corp Hgb Conc. 33.9 g/dL (33.0-37.0); Mean Corpuscular Hgb 28.6 pg (27.0-31.0); Mean Corpuscular Volume 84.5 fL (81.0-99.0); Mean Platelet Volume 8.4 fL (7.4-10.4); Nucleated Red Blood Cells % 0 %; Platelet Count 272 10^3/uL (130-400); Red Blood Cell Count 4.51 10^6/uL (4.20-5.40); Red Cell Dist. Width 12.9 % (11.5-14.5); White Blood Cell Count 7.7 10^3/uL (4.8-10.8)
[2024-07-30 14:04] LABS: ALT (SGPT) 42 U/L (0-35); AST (SGOT) 28 U/L (14-36); Albumin 4.5 g/dl (3.5-5.0); Alkaline Phosphatase 85 U/L (38-126); Blood Urea Nitrogen 12 mg/dl (7-17); Calcium 9.4 mg/dl (8.4-10.2); Carbon Dioxide 21 mmol/L (22-30); Chloride 110 mmol/L (98-107); Glucose 95 mg/dl (70-99); Potassium 4.1 mmol/L (3.5-5.1); Sodium 141 mmol/L (135-145); Total Bilirubin 0.5 mg/dl (0.2-1.3); Total Protein 6.8 g/dl (6.3-8.2); eGFR > 60.00
--- NOTE | 2024-07-30 16:04 | ED.GENMED ---
History of Present Illness
General
Chief Complaint: Abdominal Pain
Source: patient and spouse ( at bedside)
Exam Limitations: none
Time Seen by Provider: 07/30/24 15:49
Nursing documentation reviewed up to this point in time: agreed with
History of Present Illness
History of Present Illness:
The patient is a 64-year-old female who presents to the emergency department with worsening left lower abdominal pain as well as fecal discharge this morning from her vagina. Patient was discharged from 07/26/24 after receiving IV antibiotics for
sigmoid diverticulitis complicated by small abscess. She has essentially completed her at home prescribed dose of metronidazole and Levaquin.
She was discharged a few days ago, feeling fine at the time, and her symptoms were tolerable. This morning, however, she experienced worsening symptoms, particularly painful when in a seated position. She then noticed what she suspects to be loose
light brown stool passing from her vagina. She is using a pad for protection.
No fevers or chills have been reported, but nausea is present. Her appetite has decreased.
The patient has a follow-up appointment with a colorectal specialist scheduled for August 13. She had a normal bowel movement this morning.
Her medical history is significant for a prior hysterectomy.
Past History
Past History
ED Past Medical History: Psychiatric (Depression), Other (Patellar dislocations), Other (rheumatoid arthritis, DVT after knee surgery no longer taking Warfarin) and Other (Previous dislocated thumb, ovarian cysts,)
ED Past Surgical History: Appendectomy, Gynecological (Hysterectomy) and Orthopedic
Social History
Tobacco: Former smoker
Alcohol: Occasional
Drug: None
Personal:
Living: with family
Employment: Employed
Family History
Family History: CAD
Review of Systems
Review of Systems
Allergies reviewed?: Yes
All Other Systems: ROS reviewed and negative except as documented in HPI and ROS
Phy Exam
Physical Exam
Physical Exam:
Vitals: Patient's vital signs are stable. Afebrile
General: Patient is mildly uncomfortable appearing. Nontoxic appearing
Skin: Warm and dry, no rashes or lesions
Head: Normocephalic, atraumatic
Eyes: Sclera nonicteric.
Throat: Protecting airway
Neck: Normal ROM, no cervical spine tenderness, no meningismus
Cardiac: Regular rate and rhythm, no murmurs.
Pulm: Normal respiratory effort, no wheezes, rales, rhonchi heard on exam
.
Abdomen: Abdomen soft. Moderate tenderness in left lower abdomen/suprapubic region with voluntary guarding.
Rectal: No obvious drainage from rectum. No significant surrounding erythema, induration, or fluctuance. No visible abscess.
Extremities: No evidence of cyanosis or edema
Neuro: AAOx3. Grossly intact.
Psychiatric: Normal affect.
Course
Orders/Labs/Results
Orders:
Orders
07/30/24 13:34
CMP [Comprehensive Metabolic Panel] Urgent
Complete Blood Count/With Diff Urgent
07/30/24 16:04
0.9% Sodium Chloride 1000 ml [Nss] 1,000 ml IV BOLUS
HYDROmorphone [Dilaudid] 0.25 mg IV NOW STA
Iohexol [Omnipaque] See Protocol PO NOW STA
Ondansetron Injectable [Zofran] 4 mg IV NOW STA
07/30/24 16:06
CT Abd/pel W Iv And Oral Contr Urgent
Comment: recent dx of diverticulitis w/ abscess
Reason For Exam: LLQ pain, passing stool from vagina
07/30/24 16:18
Lactic Acid Q4H
Comment: CANCEL 2nd LACTIC ACID IF 1st LACTIC ACID IS LESS THAN 2
Blood Culture Q30M
TRISHA Source: Blood/Venous
Specimen Description:
Blood Culture Q30M
TRISHA Source: Blood/Venous
Specimen Description:
07/30/24 17:23
Urinalysis Reflex To Culture Urgent
Date Specimen was Collected: 07/30/24
Time Specimen was Collected: 17:17
Urine Microscopic Reflex Cult Urgent
Urine Culture Urgent
TRISHA Source: U
Specimen Description:
Date Specimen was Collected: 07/30/24
Time Specimen was Collected: 17:17
07/30/24 21:03
LevoFLOXacin 750 MG/150 ML [Levaquin] 750 mg in 150 ml IV NOW
MetroNIDAZOLE 500 MG/100 ML [Flagyl 500 mg] 100 ml IV NOW
07/30/24 21:04
Electrocardiogram (*1) Urgent
Reason for Study: QTc Monitoring
HYDROmorphone [Dilaudid] 0.25 mg IV NOW STA
07/30/24 21:49
Admit/Transfer Patient As Directed
Co-Sign Provider:
Level of Care: Inpatient admission
Assign to:: Medical/Surgical
Physician / Group: Ihsan Kaur
Diagnosis: Colovaginal fistula, abdominal pain
Reason for Hospitalization: Colovaginal fistula, abdominal pain
Expected length of stay greater than two midnights?: Yes
ELOS- Estimated Length of Stay in days: 3
I certify the patient meets the requirements for IP care: Yes
PRN Pain Medication Management As Directed
May give lesser potent ordered pain med per pt: Yes
preference::
Protocol:: Medication orders for pain may be administered in a
manner that supports deferring to patient preference
when the pt is:
- Requesting an ordered lesser potent pain medication.
Least to most potent pain medications are defined
as: acetaminophen < NSAID < tramadol < opioids
(morphine, oxycodone, hydromorphone).
- Requesting a lesser dose of the same medication IF
ORDERED.
- Requesting a less intrusive route of administration
if both routes are prescribed by the provider (PO <
IV).
07/30/24 21:50
Code Status As Directed
Resuscitation Status: Full Code
07/30/24 22:00
Flush (0.9% Sodium Chloride) [Flush (Nss)] See Dose Instructions IV PER PROTOCOL
07/30/24 22:46
Acetaminophen [Tylenol] 650 mg PO Q4HPRN PRN
Ondansetron Injectable [Zofran] 4 mg IV Q6HPRN PRN
07/30/24 22:46
ColoRectal Surgery Consult Routine
Consulting Provider: Pb Mccarty
Was physician already notified: Yes
Activity As Directed
Activity Level: Ambulate
Vital Signs As Directed
Frequency: Per unit guidelines
Weight As Directed
Frequency: Once
Comment: on admission
DX Deep Vein Thrombosis Video Routine
07/30/24 22:53
HYDROmorphone [Dilaudid] 0.25 mg IV Q4HPRN PRN
07/31/24 Breakfast
NPO
Allow oral meds: Yes
Allow clear liquids: No
Basic Metabolic Panel IN AM
Complete Blood Count/No Diff IN AM
MetroNIDAZOLE 500 MG/100 ML [Flagyl 500 mg] 100 ml IV Q8H
07/31/24 08:00
Multivitamin [Theragran] 1 tablet PO DAILY
Sennosides [Senokot] 17.2 mg PO BID
Valsartan [Diovan] 160 mg PO DAILY
07/31/24 18:00
Enoxaparin Sodium [Lovenox] 40 mg SC QPM
07/31/24 22:00
LevoFLOXacin 750 MG/150 ML [Levaquin] 750 mg in 150 ml IV Q24H
Abnormal Lab Results
07/30/24 07/30/24
13:34 17:23
Lymphocytes % 19.0 L %
(20.5-51.1)
Chloride 110 H mmol/L
(98-107)
Carbon Dioxide 21 L mmol/L
(22-30)
ALT 42 H U/L
(0-35)
Leukocyte Esterase Rfl 2+ A
(Negative)
07/30/24 13:34
07/30/24 13:34
Vital Signs
Initial and Last Documented VS:
Initial Vital Signs
Temp Pulse Resp BP Pulse Ox
98.9 F 89 18 117/70 98
07/30/24 13:17 07/30/24 13:17 07/30/24 13:17 07/30/24 13:17 07/30/24 13:17
Last Documented Vital Signs
Temp Pulse Resp BP Pulse Ox
98.9 F 74 17 122/70 95
07/30/24 23:26 07/30/24 23:26 07/30/24 23:26 07/30/24 23:26 07/30/24 23:26
MDM/Problems Addressed
Differential Diagnosis Includes:
Not limited to: Diverticulitis complicated by fistula formation, intra-abdominal abscess, bowel perforation, cystitis, pyelonephritis, bowel obstruction, etc.
MDM/Problems Addressed:
64-year-old female with history as documented recently discharged after admission for sigmoid diverticulitis complicated by small abscess presenting with worsening left abdominal pain as well as concerns for stool leakage from either vagina or
urethra. No fevers, chills, vomiting. No dysuria. Vitals and physical exam as above. Basic labs were obtained prior to my evaluation without any significant findings. No leukocytosis.
Abdominal exam reveals moderate tenderness in LLQ with voluntary guarding. No obvious vaginal or rectal drainage on exam. No obvious rectal abscess on exam, however, given history and recent complicated diverticulitis � concern possible fistula
formation. Will check CT scan with PO/IV contrast. Will giveIVF and treat pain. Will check lactic acid and blood cultures given patients immunocompromised state.
Update: Lactic acid normal. Urinalysis w/o evidence of infection. CT scan does shows improvement in recently tx diverticulitis however findings concerning for either colovesicular vs colovaginal fistula. Case discussed with colorectal surgery,
Lul. Given patients persistent abdominal pain and immunocompromised state � will admit for continued IV antibiotics and colorectal consult. Falgyl/levaquin initiated in ED. Patient accepted to hospitalist service in stable condition.
Chronic conditions affecting care:
Diverticulitis complicated by small abscess
Acute Exacerbation and/or Progression of Chronic Illness:
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
*Radiology
Radiology exam reviewed: radiology read reviewed
*Pulse Oximetry
Patient hypoxic: no
*EKG
Interpreted by ED Provider?: NA
EKG Intrepretation Date: 07/30/24
Interpretation: abnormal
Comparison EKG: no changes
Heart Rate: 79
Rate: normal
Rhythm: sinus
[place]: normal axis
Interval: normal QT interval
QRS Pattern: normal QRS
Ischemia: no ischemia
*Product Safety Compliance Leader Interpretation
Rate: Product Safety Compliance Leader- N/A
*Critical Care Note
Total Time (30-74mins, 75-104mins- exclusive of procedures): Not Applicable
Data Reviewed
Review of Other/Old Records Reveals: Discharge Summary (Discharge summary from 07/25/24 following admission for diverticulitis complicated by small abscess)
Source: previous hospital records
Patient Management
Discussion with other providers: Hospitalist and Manager Software (Case discussed with colorectal surgeon)
ED Attending Note
-
Portions of this chart may have been created with voice recognition software.� Occasional wrong word or��sound alike� substitutions may have occurred due to the inherent limitations of voice recognition software.
Discharge Plan
Departure
Patient Disposition: Admit
Date of Disposition: 07/30/24
Time of Disposition: 21:05
Presentation/result/management discussed w/ accepting MD/DO: Hospitalist
Discharge Problem:
Colovaginal fistula, Abdominal pain
Interventions
Interventions:
*Risk Screen - Suicide Last Done: 07/30/24 13:17
*General Assessment Last Done: 07/30/24 13:17
*Neglect/Abuse Screening Last Done: 07/30/24 22:45
*ED- Fall Risk Assessment Last Done: 07/30/24 13:17
*ED COVID-19 Vaccine History Last Done: 07/30/24 13:17
*Nursing Disposition Last Done: 07/30/24 22:45
KC-Yabqdj-Hpwlruzwkx Assessment Last Done: 07/30/24 16:56
Discharge Date and Time
Discharge Date/Time: 07/30/24 22:46
[2024-07-30 16:07] VITALS: BP 107/63
[2024-07-30 16:09] VITALS: BMI 32.3
[2024-07-30] MEDS: OMNIPAQUE 50 ML PO (16:13)
[2024-07-30] MEDS: ZOFRAN 4 MG IV (16:13)
[2024-07-30] MEDS: DILAUDID 0.25 MG IV ×2 (16:13→21:33)
[2024-07-30] MEDS: NSS 1000 IV (16:17)
[2024-07-30 17:00] VITALS: BP 110/66
[2024-07-30 18:00] VITALS: BP 111/70
[2024-07-30 18:18] LABS: Urine Albumin Negative (Neg - Trace); Urine Bilirubin Negative (Negative); Urine Character Clear (Clear); Urine Color Yellow; Urine Glucose Negative (Negative); Urine Ketone Negative (Negative); Urine Leukocyte 2+ (Negative); Urine Nitrite Negative (Negative); Urine Occult Blood Negative (Negative); Urine Urobilinogen Negative (Neg - 1+)
[2024-07-30 18:32] LABS: Urine Red Blood Cell 0-2 /HPF (0-2); Urine Squamous Cell 0-2 /LPF (Few)
[2024-07-30 19:20] VITALS: BP 108/52
--- NOTE | 2024-07-30 21:15 | HPS.HSE ---
Family Physician
-
Family Physician: Rick Parnell
Chief Complaint
-
worsening LLQ abdominal pain
History of Present Illness
Patient is a 64-year-old female with past medical history significant for essential hypertension, depression, attention deficit disorder, solitary kidney, rheumatoid arthritis and Hx DVT after surgery who presented to [facility] ED for evaluation of
worsening LLQ abdominal pain. Patient with recent hospitalization for acute sigmoid diverticulitis with small probable associated abscess formation from 07/23/2024 - 07/25/2024. Patient reports she was feeling better following discharge until this
morning. She explains she had a bowel movement this morning that was normal (soft and formed) but she stated something just felt off when she went to the restroom. As the day went on she began feeling pressure in the LLQ of abdomen and then started
noticing leaking stool from urethra when urinating. She does report some mild nausea. Denies any fever, chills, shortness of breath, vomiting, constipation or diarrhea.
Medical History
Past Medical History
Past Medical History: Reports Other
Additional Past Medical History:
Essential hypertension
Depression
Attention deficit disorder
Solitary kidney
Patellar dislocation
Rheumatoid arthritis
DVT after surgery
Dislocated thumb
Ovarian cyst
Umbilical hernia
Past Surgical History: Reports Other
Additional Past Surgical History:
Hysterectomy
Cholecystectomy
Appendectomy
Cystocele repair
Arthroscopic right knee surgery
Ulnar collateral ligament repair of the thumb
Arthroscopic right shoulder surgery
Breast reduction surgery
Right total knee arthroplasty
Left total knee arthroplasty
Social History
Tobacco: Former Smoker
Alcohol: Occasional
Drug: None
Personal:
Living: With Family
Family History
Family History: Not pertinent
Allergies / Home Medications
Allergies reflects when Allergies were last updated in [employer].
Home Medications with original date entered in [employer]
Allergy/Medication List:
Allergies
Allergy/AdvReac Type Severity Reaction Status Date / Time
celecoxib Allergy Hives;itchi Verified 06/08/24 13:01
ng
prochlorperazine (From Allergy Unknown Verified 06/08/24 13:01
Compazine)
prochlorperazine edisylate Allergy dystonic Verified 06/08/24 13:01
(From Compazine) reaction
prochlorperazine maleate Allergy Dystonic Verified 06/08/24 13:01
(From Compazine) Reaction
amoxicilin Allergy severe Uncoded 06/08/24 13:01
vomiting/diarrhea
Home Medications
acetaminophen 325 mg tablet (Tylenol) 650 mg PO DAILYPRN PRN mild pain 07/23/24
therapeutic multivitamin 1 tab PO DAILY Supplement 07/23/24
valsartan 160 mg tablet 160 mg PO DAILY Blood Pressure 07/23/24
bisacodyl 10 mg rectal suppository (Dulcolax (bisacodyl)) 10 mg SD DAILY 1 day #12 ea 07/25/24
sennosides 8.6 mg tablet (Senna Laxative) 17.2 mg (2 x 8.6 mg) PO BID 5 days #20 tabs 07/25/24
Review of Systems
-
History Source: Patient
Constitutional: Reports No Symptoms
EENT: Reports No Symptoms
Respiratory: Reports No Symptoms
Cardiac: Reports No Symptoms
Abdomen/GI: Reports Abdominal Pain (pressure in LLQ ) and Nausea
: Reports Other (leakage of stool from urethra )
Musculoskeletal: Reports No Symptoms
Skin: Reports No Symptoms
Neurological: Reports No Symptoms
Endocrine: Reports No Symptoms
Hematologic/Lymphatic: Reports No Symptoms
Psych: Reports No Symptoms
Physical Exam
Vital Signs
Vital Signs
Temp Pulse Resp BP Pulse Ox
98.9 F 70 16 108/52 96
07/30/24 13:17 07/30/24 21:08 07/30/24 21:08 07/30/24 19:20 07/30/24 19:20
Physical Exam
General: Well Developed, Well Nourished, No Apparent Distress, Comfortable and Conversant
HEENT: NormoCephalic, Moist mucous membranes, Atraumatic, Nose Appears Normal and Ears Appear Normal
Respiratory: Clear and Non Labored Respirations
Cardiac: S1/S2 and Regular Rhythm
Breast: Deferred by me
GI: Soft, Non Distended, Normal Bowel Sounds and Tender
Rectal: Deferred by Provider
Genito-urinary: Deferred by me
Musculoskeletal: No Clubbing, No Cyanosis and No Edema
Skin: Warm and IV/Catheter Site
Neuro: Awake, Alert, AO x 3 and Nonfocal/grossly intact
Psych: Calm and Intact Judgment/Insight
Laboratory Results
-
07/30/24 13:34
07/30/24 13:34
Laboratory Results
Lactic Acid Cancelled 07/30/24 20:15
Total Bilirubin 0.5 mg/dl (0.2-1.3) 07/30/24 13:34
AST 28 U/L (14-36) 07/30/24 13:34
ALT 42 U/L (0-35) H 07/30/24 13:34
Alkaline Phosphatase 85 U/L (38-126) 07/30/24 13:34
Data Reviewed
-
CT Scan: Report Reviewed by me (Abd/Pel: 1. Significant interval improvement of previously seen sigmoid colon diverticulitis and adjacent abscess formation. No definite residual fluid collection. There is ill-defined soft tissue adherent between the
inferior margin of the mid sigmoid colon, vaginal cuff and posterior superior urin)
Lab Data: Labs Reviewed by me
Impression/Plan
-
IMPRESSION/PLAN:
#colovesical vs. colovaginal fistulas
#Acute sigmoid diverticulitis with small probable associated abscess formation
recent hospital stay 07/23/2024 - 07/25/2024
UA: not indacative of UTI
Urine Cx: pending
Blood Cx: pending
Abd/Pel CT: 1. Significant interval improvement of previously seen sigmoid colon diverticulitis and adjacent abscess formation. No definite residual fluid collection. There is ill-defined soft tissue adherent
between the inferior margin of the mid sigmoid colon, vaginal cuff and posterior superior urinary bladder, with mild wall thickening of the urinary bladder in this region. Cannot rule out colovesical
and/or colovaginal fistulas.
- Admit to med/surg
- Consult Colorectal
- IV Flagyl/Levaquin
- pain regimen
- antiemetics
- NPO at midnight
#Essential hypertension
- continue valsartan
#Rheumatoid arthritis
- Hold Simponi Aria infusions while acutely ill
#DVT after surgery
Code status: full code
DVT prophylaxis: lovenox sq
--- NOTE | 2024-07-30 21:25 | W.PN.UPDATE ---
Update Note
Progress Note Update
Being seen in conjunction with KEENAN. I agree defined. I agree with his note unless stated otherwise.
Patient is a 60-year-old with past medical history of hypertension, presenting to the emergency department with left lower quadrant pain. Patient was recently admitted and discharged on the fourth for sigmoid diverticulitis with a small abscess.
She appeared to have improved since her discharge but came in today with worsening left lower quadrant pain and nausea and noticed that she was passing stool either from a ureteral vagina. She has had no fevers. She denies any urinary symptoms
otherwise.
In the emergency department she remained afebrile, blood pressure was 108/50 with a pulse of 70 satting 96% on room air. Urinalysis was remarkably negative. CBC was completely within normal limits.
Electrolytes were normal. BUN/creatinine were normal.
CT scan now shows interval improvement of the previously seen sigmoid: Diverticulitis and adjacent abscess formation. No definite fluid collection noted. However there is soft tissue abdomen between the inferior margin of the mid sigmoid colon,
vaginal cuff from posterior superior urinary bladder with mild wall thickening concerning for possible colovesical/colovaginal fistulas.
Assessment and plan
Suspected complicated diverticulitis complicated by possible colovesicular/colovaginal fistula. Hemodynamically stable, nontoxic-appearing, no leukocytosis.
-Admit to MedSurg
-N.p.o. for now
-IV Levaquin and Flagyl
-Surgery consult
-Maintenance fluids, antiemetics and pain control
DVT prophylaxis�Lovenox subcu
CODE STATUS�full code
[2024-07-30] MEDS: LEVAQUIN 150 IV (21:33)
[2024-07-30] MEDS: FLAGYL 500 MG 100 IV (21:34)
[2024-07-30 23:26] VITALS: BP 122/70
--- NOTE | 2024-07-31 01:04 | PTCARENOTE ---
07/30: pt arrived via wheelchair. fully oriented. pt oriented to room and unit. callbell within reach.
[2024-07-31] MEDS: DILAUDID 0.25 MG IV (05:24)
--- NOTE | 2024-07-31 05:35 | PTCARENOTE ---
07/31: pt reported increased volume of stool through colovaginal fistula. Dark brown. pt describes pain as no different from when she arrived to ED and states it is a pressure sensation in the llq of the abdomen. AIRLINE COUNTER AGENT made aware. Monitoring pt output.
[2024-07-31] MEDS: FLAGYL 500 MG 100 IV ×3 (05:44→21:34)
[2024-07-31 06:03] LABS: Glucose - Point of Care 102 mg/dl (70-99)
[2024-07-31 07:15] LABS: Hematocrit 33.3 % (37.0-47.0); Hemoglobin 11.2 g/dL (12.0-16.0); Mean Corp Hgb Conc. 33.6 g/dL (33.0-37.0); Mean Corpuscular Hgb 28.6 pg (27.0-31.0); Mean Corpuscular Volume 84.9 fL (81.0-99.0); Mean Platelet Volume 8.8 fL (7.4-10.4); Platelet Count 232 10^3/uL (130-400); Red Blood Cell Count 3.92 10^6/uL (4.20-5.40); White Blood Cell Count 5.3 10^3/uL (4.8-10.8)
[2024-07-31 07:25] VITALS: BP 112/68
[2024-07-31 07:48] LABS: Blood Urea Nitrogen 9 mg/dl (7-17); Carbon Dioxide 24 mmol/L (22-30); Chloride 113 mmol/L (98-107); Estimated Creatinine Clearance 75 ml/min; Glucose 96 mg/dl (70-99); Potassium 4.1 mmol/L (3.5-5.1); Sodium 143 mmol/L (135-145); eGFR > 60.00
[2024-07-31] MEDS: DIOVAN 160 MG PO (08:39)
[2024-07-31] MEDS: THERAGRAN 1 TABLET PO (08:39)
--- NOTE | 2024-07-31 10:46 | CON.CRS ---
Consultation
-
Date/Time Consultation Requested: 07/30/2024, 22:46
Date/Time Consultation Performed: 07/31/2024, 08:45
Requesting Provider: Gudelia Castillo CRNP
Performing Provider: Danie Markham MD
Reason for Consultation: colovaginal fistula
Medical History
-
Chief Complaint: stool in vagina
History of Present Illness:
64-year-old female, medically suppressed due to Simponi for rheumatoid arthritis, presents to [facility] complaining of stool out of her vagina. She was recently admitted from 07/23/2024 and discharged on 07/25/2024. Her complaint at that time
was abdominal pain and a CT showed diverticulitis with a small abscess. The abscess was small and centrally located and was not able to be drained by IR. She was kept on IV antibiotics during her hospitalization and continued on outpatient course
of oral antibiotics. She was discharged on 07/25/2024.
She now returns to [facility] complaining of left lower quadrant abdominal pain as well as stool coming from her vagina over the past several days. She states it is 'constantly pouring out'. She had a CT of the abdomen pelvis that showed
significant interval improvement of previously seen sigmoid colon diverticulitis and adjacent abscess formation. No definitive residual fluid collection. There is an ill-defined soft tissue adherent between the inferior margin of the mid sigmoid
colon, vaginal cuff and posterior superior urinary bladder, with mild wall thickening of the urinary bladder in this region. Cannot rule out colovaginal fistula. Her current WBC is 5.3. She remains afebrile. She was started on IV antibiotics in
the ER.
Her last colonoscopy was 15 years ago and she does not recall polyps being found. She has a family history of polyps.
Past Medical History
Past Medical History: Other (Essential hypertension, Depression, Attention deficit disorder, Solitary kidney, Patellar dislocation, Rheumatoid arthritis, DVT, Dislocated thumb, Ovarian cyst, Umbilical hernia)
Past Surgical History: Appendectomy, Cholecystectomy, Gynecological (Hysterectomy) and Other (Cystocele repair, Arthroscopic right knee surgery, Ulnar collateral ligament repair of the thumb, Arthroscopic right shoulder surgery, Breast reduction
surgery, right and left knee arthroplasty)
Social History
Tobacco: Former Smoker
Alcohol: Occasional
Drug: None
Personal:
Family History
Family History: Reviewed & Not Pertinent
Allergies / Home Medications
Allergy/AdvReac Type Severity Reaction Status Date / Time
amoxicillin Allergy SEVERE Verified 07/30/24 22:55
VOMITING/DIARRHEA
celecoxib Allergy Hives;itchi Verified 06/08/24 13:01
ng
prochlorperazine (From Allergy Unknown Verified 06/08/24 13:01
Compazine)
prochlorperazine edisylate Allergy dystonic Verified 06/08/24 13:01
(From Compazine) reaction
prochlorperazine maleate Allergy Dystonic Verified 06/08/24 13:01
(From Compazine) Reaction
�Medication �Instructions �Recorded �Confirmed �Type
acetaminophen 325 mg tablet 650 mg PO DAILYPRN PRN mild pain 07/23/24 07/30/24 History
(Tylenol)
therapeutic multivitamin 1 tab PO DAILY Supplement 07/23/24 07/30/24 History
valsartan 160 mg tablet 160 mg PO DAILY Blood Pressure 07/23/24 07/30/24 History
bisacodyl 10 mg rectal suppository 10 mg MO DAILY 1 day #12 ea 07/25/24 07/30/24 Rx
(Dulcolax (bisacodyl))
sennosides 8.6 mg tablet (Senna 17.2 mg (2 x 8.6 mg) PO BID 5 days 07/25/24 07/30/24 Rx
Laxative) #20 tabs
Review of Systems
-
History Source: Patient
Abdomen/GI: Abdominal Pain
: Other (stool from vagina)
A 10 point review of systems was completed, and was negative except as per HPI.
Physical Exam
Vital Signs
Temp 98.8 F 07/31/24 07:25
Pulse 79 07/31/24 08:39
Resp Rate 16 07/31/24 07:25
Blood pressure 112/68 07/31/24 08:39
SaO2 94 07/31/24 09:49
07/30/24 07/31/24 08/01/24
06:59 06:59 06:59
Actual Weight 85.4 kg
Body Mass Index (BMI) 32.3
Lab Results / Allergies
07/31/24 06:47
07/31/24 06:47
WBC 5.3 10^3/uL (4.8-10.8) 07/31/24 06:47
Hgb 11.2 g/dL (12.0-16.0) L 07/31/24 06:47
Hct 33.3 % (37.0-47.0) L 07/31/24 06:47
Plt Count 232 10^3/uL (130-400) 07/31/24 06:47
Abs Immat Gran (auto) 0.0 10^3/uL (0-0.05) 07/30/24 13:34
Neutrophils % 69.5 % (42.2-75.2) 07/30/24 13:34
Allergy/AdvReac Type Severity Reaction Status Date / Time
amoxicillin Allergy SEVERE Verified 07/30/24 22:55
VOMITING/DIARRHEA
celecoxib Allergy Hives;itchi Verified 06/08/24 13:01
ng
prochlorperazine (From Allergy Unknown Verified 06/08/24 13:01
Compazine)
prochlorperazine edisylate Allergy dystonic Verified 06/08/24 13:01
(From Compazine) reaction
prochlorperazine maleate Allergy Dystonic Verified 06/08/24 13:01
(From Compazine) Reaction
Physical Exam
General: Well Developed, Well Nourished and No Apparent Distress
GI: Soft, Non Tender and Non Distended
Skin: Warm and Dry
Neuro: AO x 3
Psych: Calm
Assessment / Plan
-
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
on CT
Plan:
- No immediate plan for surgery. Surgery now involved a colostomy.
-Continue IV antibiotics
- Okay to start clear liquid diet
- Plan is to continue IV antibiotics and allow the diverticulitis to settle down. Will discuss repairing the colovaginal fistula as an elective outpatient basis to avoid a colostomy during this admission. Patient is in agreement with this plan.
Will follow.
--- NOTE | 2024-07-31 11:04 | W.PN.HOSP.TC ---
Today's Communication/Plan
-
Continue current care
Assessment / Plan
Assessment / Plan
Gen-AAOx3, NAD
HEENT-NC, AT, anicteric, clear oral mm
Neck-supple
CV-reg, no M, +S1/S2
Lungs-clear B/L
Abd-soft, NT, ND
Ext-no edema
Musculoskeletal-no cyanosis, clubbing
Skin-warm and dry
Neuro-grossly non-focal
Psych-calm, cooperative
Complicated sigmoid diverticulitis -with [place]-vaginal fistula. No signs of sepsis. Continue antibiotics. Colorectal surgery following.
CT abdomen/pelvis shows significant interval improvement of previously seen sigmoid colonic diverticulitis and abscess. No definitive residual fluid collection. Ill-defined soft tissue adherent between the inferior margin of the mid sigmoid colon,
vaginal cuff and posterior superior urinary bladder, mild wall thickening of the urinary bladder.
Currently on clear liquid diet, advance per Colorectal surgery.
Recent hospitalization July 23 to July 25 for sigmoid diverticulitis complicated by small abscess. Discharged on course of levofloxacin and metronidazole.
Essential hypertension -stable.
Rheumatoid arthritis
Obesity due to excess calories
Full code
Anticipated Discharge: > 48 hours
Subjective/Interval History
-
Date of Service: July 31, 2024
Patient seen and examined. Feeling better, less abdominal pain. No other complaints.
Objective Data
-
Labs:
Laboratory Results
07/31/24
06:47
WBC 5.3
Hgb 11.2 L
Hct 33.3 L
Plt Count 232
Sodium 143
Potassium 4.1
Chloride 113 H
Carbon Dioxide 24
BUN 9
Creatinine 0.8
Glucose 96
Calcium 9.0
Vital Signs:
Vital Signs
Temp Pulse Resp BP Pulse Ox
98.8 F 79 16 112/68 94
07/31/24 07:25 07/31/24 08:39 07/31/24 07:25 07/31/24 08:39 07/31/24 09:49
Review of Systems
-
History Source: Patient
All other systems: Reviewed and negative
--- NOTE | 2024-07-31 13:05 | CM ---
Reviewed the chart notes and spoke with the patient's spouse at the bedside. Patient not in room. Patient resides with her spouse in a one story home with four steps to enter. The patient hernandez not use any DME and no VN/SNF in past. The patient's
pharmacy of choice is [facility]. CM continues to be available to patient/family and is monitoring medical plan for needs at discharge.
Plan: Discharge plans will depend on the patient's progress.
[2024-07-31 16:15] VITALS: BP 122/70
[2024-07-31] MEDS: LOVENOX 40 MG SC (18:19)
[2024-07-31] MEDS: LEVAQUIN 150 IV (22:54)
[2024-07-31 23:46] VITALS: BP 129/75
[2024-08-01] MEDS: FLAGYL 500 MG 100 IV (05:25)
[2024-08-01 07:15] VITALS: BP 118/66
--- NOTE | 2024-08-01 08:32 | W.PN.CRS1 ---
Today's Communication / Plan
-
finish course of abx
no surgery at this time
follow up as an outpatient with Dr. Samano to discuss elective surgery
Assessment/Plan
-
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
on CT
no labs, vitals normal
Plan:
- No immediate plan for surgery. Surgery now involves a colostomy.
- Continue IV antibiotics. Convert to oral as an outpatient.
- Advance diet to regular diet
- Plan is to continue antibiotics and allow the diverticulitis to settle down. Will discuss repairing the colovaginal fistula as an elective outpatient basis to avoid a colostomy during this admission. Patient is in agreement with this plan. She
will need to follow up with an appointment with Dr. Samano to discuss elective surgery. All questions answered.
- okay to discharge with antibiotics from our perspective
Subjective Data
Subjective Data
Date of Service: August 01, 2024
Patient states she has no nausea or vomiting. She no longer has any pain. She is having bowel movements. She still has some vaginal discharge but it is much less than it was. She is tolerating clears and wanting more.
Objective Data
-
Vital Signs
Temp Pulse Resp BP Pulse Ox
98.2 F 78 16 118/66 94
08/01/24 07:15 08/01/24 07:15 08/01/24 07:15 08/01/24 07:15 08/01/24 07:15
Intake & Output
07/31/24 08/01/24 08/02/24
06:59 06:59 06:59
Intake Total 660 / 660
Balance 660 / 660
Intake:
Oral fluids 660 / 660
Other:
Number of approximated MODERATE 4
amounts of urine
Lab Results
07/31/24 06:47
07/31/24 06:47
Physical Exam
-
General: No Acute Distress and AOx3
Abdomen: Soft, Non Distended and Non Tender
Skin: Warm and Dry
[2024-08-01] MEDS: DIOVAN 160 MG PO (08:42)
[2024-08-01] MEDS: THERAGRAN 1 TABLET PO (08:42)
--- NOTE | 2024-08-01 10:53 | W.PN.HOSP.TC ---
Today's Communication/Plan
-
Discharge
Assessment / Plan
Assessment / Plan
Gen-AAOx3, NAD
HEENT-NC, AT, anicteric, clear oral mm
Neck-supple
CV-reg, no M, +S1/S2
Lungs-clear B/L
Abd-soft, NT, ND
Ext-no edema
Musculoskeletal-no cyanosis, clubbing
Skin-warm and dry
Neuro-grossly non-focal
Psych-calm, cooperative
Complicated sigmoid diverticulitis -with [place]-vaginal fistula. No signs of sepsis. Continue antibiotics. Colorectal surgery following.
CT abdomen/pelvis shows significant interval improvement of previously seen sigmoid colonic diverticulitis and abscess. No definitive residual fluid collection. Ill-defined soft tissue adherent between the inferior margin of the mid sigmoid colon,
vaginal cuff and posterior superior urinary bladder, mild wall thickening of the urinary bladder.
Recent hospitalization July 23 to July 25 for sigmoid diverticulitis complicated by small abscess. Discharged on course of levofloxacin and metronidazole.
Tolerating solid food.
Okay to discharge on antibiotics per colorectal surgery. She has an appointment to see Dr. Samano in the office on August 13.
Essential hypertension -stable.
Rheumatoid arthritis
Obesity due to excess calories
Full code
Dispo - medically stable for discharge. Follow-up with PCP and colorectal surgery.
32 minutes spent in discharge process.
Anticipated Discharge: Today
Subjective/Interval History
-
Date of Service: August 01, 2024
Patient seen and examined. Feeling much better. Vaginal output much less. Pain improved. Eager to go home.
Objective Data
-
Vital Signs:
Vital Signs
Temp Pulse Resp BP Pulse Ox
98.2 F 78 16 118/66 94
08/01/24 07:15 08/01/24 08:42 08/01/24 07:15 08/01/24 08:42 08/01/24 07:15
I&O
07/31/24 08/01/24 08/02/24
06:59 06:59 06:59
Intake Total 660 / 660
Balance 660 / 660
Review of Systems
-
History Source: Patient
All other systems: Reviewed and negative
--- NOTE | 2024-08-01 11:01 | W.DS.TRANS ---
DC Summary - Pacu Rn
-
Discharge Instructions:
Discharge Diagnosis/Procedures Complicated sigmoid diverticulitis, colovaginal
fistula
Diet Regular
Activity As tolerated
Driving Restrictions As prior to admission
Bathing Restrictions None
Instructions:
Stand-Alone Forms:
Changes to Home Medications: No
Discharge Medications:
DC Medications w/original date entered in [facility]
acetaminophen 325 mg tablet (Tylenol) 650 mg PO DAILYPRN PRN mild pain 07/23/24
therapeutic multivitamin 1 tab PO DAILY Supplement 07/23/24
valsartan 160 mg tablet 160 mg PO DAILY Blood Pressure 07/23/24
bisacodyl 10 mg rectal suppository (Dulcolax (bisacodyl)) [address] DAILY 1 day #12 ea 07/25/24
sennosides 8.6 mg tablet (Senna Laxative) 17.2 mg (2 x 8.6 mg) PO BID 5 days #20 tabs 07/25/24
levofloxacin 750 mg tablet 750 mg PO DAILY #13 tabs 08/01/24
metronidazole 500 mg tablet 500 mg PO BID #26 tabs 08/01/24
Home Medication Changes
Pending Results: No
--- NOTE | 2024-08-01 11:02 | CM ---
Reviewed the chart notes. Patient is to be discharged to home today. Patient's spouse at bedside to provide transportation.
Plan: Discharge to home today. No additional needs identified at this time.
[2024-08-01 12:00] VITALS: BP 118/72
--- NOTE | 2024-08-01 12:31 | PTCARENOTE ---
Patient discharged home, transported by . This RN removed patient's IV and reviewed discharge instructions with patient and patient's spouse at bedside, both verbalized understanding. Patient dressed and gathered belongings in room
independently. Patient taken down to spouse's car at main lobby via staff escort and wheelchair.
== END 2024-08-01 12:31 | disposition home or self-care (01) | DRG 394 ==
LOC: 2 NORTH 22:11
PROVIDERS: Emergency Medicine; Nurse Practitioner Family; Physician Assistant; ADMITTING PHYSICIAN Internal Medicine; ATTENDING PHYSICIAN Hospitalist; EMERGENCY PHYSICIAN Emergency Medicine; FAMILY PHYSICIAN Family Medicine; OTHER PHYSICIAN Surgery
DX: N82.3 Fistula of vagina to large intestine (principal); K57.20 Diverticulitis of large intestine with perforation and abscess without bleeding; M06.9 Rheumatoid arthritis, unspecified; I10 Essential (primary) hypertension; E66.09 Other obesity due to excess calories; Z68.32 Body mass index [BMI] 32.0-32.9, adult; Z79.60 Long term (current) use of unspecified immunomodulators and immunosuppressants; Z79.899 Other long term (current) drug therapy; Z86.718 Personal history of other venous thrombosis and embolism; Z87.891 Personal history of nicotine dependence
CPT/HCPCS: 74177; 80048; 80053; 81003; 81015; 82962; 83605; 85025; 85027; 87040; 87086; 93005; 96365; 96366; 96367; 96375; 96376; 99285; Q9967

== ENCOUNTER 2024-09-26 06:16 | Day surgery (SDC) | payer OTHER, SELFPAY | END 2024-09-26 11:38 | disposition home or self-care (01) | LOC: GI 06:16 | PROVIDERS: ATTENDING PHYSICIAN Surgery | DX: Z12.11 Encounter for screening for malignant neoplasm of colon (principal); K57.30 Diverticulosis of large intestine without perforation or abscess without bleeding; Z01.818 Encounter for other preprocedural examination; Z83.719 Family history of colon polyps, unspecified | CPT/HCPCS: G0105 ==

== ENCOUNTER 2024-09-27 06:11 | Inpatient (IN) | payer OTHER, SELFPAY ==
[2024-09-24 11:19] LABS: Hematocrit 40.4 % (37.0-47.0); Hemoglobin 13.4 g/dL (12.0-16.0); Mean Corp Hgb Conc. 33.2 g/dL (33.0-37.0); Mean Corpuscular Volume 84.9 fL (81.0-99.0); Platelet Count 202 10^3/uL (130-400); Red Cell Dist. Width 12.7 % (11.5-14.5)
[2024-09-24 11:26] LABS: INR 0.86; PT 12.0 Sec (11.4-14.6)
[2024-09-24 11:27] LABS: APTT 25.6 Sec (23.4-35.0)
[2024-09-24 11:59] LABS: ALT (SGPT) 34 U/L (0-35); AST (SGOT) 25 U/L (14-36); Albumin 4.8 g/dl (3.5-5.0); Alkaline Phosphatase 76 U/L (38-126); Blood Urea Nitrogen 20 mg/dl (7-17); Calcium 9.9 mg/dl (8.4-10.2); Carbon Dioxide 25 mmol/L (22-30); Chloride 110 mmol/L (98-107); Glucose 103 mg/dl (70-99); Potassium 4.4 mmol/L (3.5-5.1); Sodium 143 mmol/L (135-145); Total Protein 7.1 g/dl (6.3-8.2); eGFR > 60.00
[2024-09-24 12:10] LABS: Glycohemoglobin (HgbA1c) 5.7 % (4.0-5.6)
[2024-09-24 14:25] VITALS: BMI 31.6
[2024-09-27] VITALS (13 sets, daily range): BP systolic 113–140; BP diastolic 67–86; BMI 31.6
[2024-09-27] MEDS: TYLENOL 1000 MG PO (06:37)
[2024-09-27] MEDS: HEPARIN 5000 UNITS SC (06:37)
[2024-09-27] MEDS: NEURONTIN 600 MG PO (06:37)
[2024-09-27] MEDS: NORMOSOL-R/PLASMALYTE-A 1000 IV ×3 (06:38→21:37)
--- NOTE | 2024-09-27 12:01 | W.SUR.POST ---
Surgical Immediate Post Op
Note
Pre Op Diagnosis: Colovaginal fistula and rectocele
Post Op Diagnosis: Colovaginal fistula and rectocele
Procedure Performed: Robotic repair of vagina from colovaginal fistula, posterior colporrhaphy, perineoplasty
Primary Surgeon: Albino Wilhelm MD
Anesthesia: General with ET tube
Estimated Blood Loss: 10 mL
Complications: None
Operative Findings: 5mm colovaginal fistula at left vaginal apex, sacrocolpopexy mesh in place and not involved with fistula, stage 2 Rectocele
--- NOTE | 2024-09-27 12:53 | W.IMMPOSTOP ---
Addendum entered and electronically signed by Curtis Samano MD 09/27/24 16:30:
Updated patient's after operation via phone conversation.
Original Note:
Surgical Immed Post Op Note
-
Primary Surgeon: Samm Samano MD
Assisting Surgeon: SANTO Smith; Telma Lin MESH MAN; Florence Juarez MD-[id number]
Pre-op Diagnosis: colovaginal fistula
Post-op Diagnosis: same
Procedure Performed: 1) robotic sigmoidectomy with takedown of colovaginal fistula 2) flexible sigmoidoscopy
Anesthesia Type: general plus local
Specimen / Cultures: sigmoid colon with stitch marking source of fistula
Estimated Blood Loss: 200 cc
Complications: no immediate
Operative Findings: diseased sigmoid colon adherent to surrounding structures in pelvis including to old left pelvic mesh and the vagina (the fistula)
#19 Leeroy in pelvis
Malone and left stent placed by Dr. Jimenez of urology.
Will send to med surg.
[2024-09-27 13:54] LABS: Hematocrit 35.4 % (37.0-47.0); Hemoglobin 12.1 g/dL (12.0-16.0); Mean Corp Hgb Conc. 34.2 g/dL (33.0-37.0); Mean Corpuscular Volume 82.7 fL (81.0-99.0); Nucleated Red Blood Cells % 0 %; Platelet Count 172 10^3/uL (130-400); Red Cell Dist. Width 12.8 % (11.5-14.5)
[2024-09-27] MEDS: DILAUDID 0.5 MG IV ×2 (13:56→19:54)
[2024-09-27 14:12] LABS: Blood Urea Nitrogen 10 mg/dl (7-17); Calcium 8.2 mg/dl (8.4-10.2); Carbon Dioxide 21 mmol/L (22-30); Chloride 111 mmol/L (98-107); Estimated Creatinine Clearance 72 ml/min; Glucose 175 mg/dl (70-99); Magnesium 1.9 mg/dl (1.6-2.3); Potassium 4.0 mmol/L (3.5-5.1); Sodium 141 mmol/L (135-145); eGFR > 60.00
--- NOTE | 2024-09-27 15:57 | PTCARENOTE ---
Pt arrived 1445 from PACU. Pt AAOX3, but drowsy. VSS. IVF infusing. oriented to room and call hahn. bed locked and in lowest position.
[2024-09-27] MEDS: TYLENOL PO (16:01)
[2024-09-27] MEDS: TYLENOL 650 MG PO (19:55)
[2024-09-28] MEDS: TYLENOL PO ×2 (00:38→20:00)
[2024-09-28] MEDS: TYLENOL 650 MG PO ×5 (03:26→22:42)
[2024-09-28] MEDS: DILAUDID 0.5 MG IV (03:28)
[2024-09-28 03:32] VITALS: BP 119/64
[2024-09-28 05:12] VITALS: BMI 32.7
[2024-09-28 06:25] LABS: Hematocrit 31.6 % (37.0-47.0); Hemoglobin 10.7 g/dL (12.0-16.0); Mean Corp Hgb Conc. 33.9 g/dL (33.0-37.0); Mean Corpuscular Volume 83.8 fL (81.0-99.0); Nucleated Red Blood Cells % 0 %; Platelet Count 177 10^3/uL (130-400); Red Cell Dist. Width 13.0 % (11.5-14.5)
[2024-09-28 06:48] LABS: Blood Urea Nitrogen 7 mg/dl (7-17); Calcium 8.2 mg/dl (8.4-10.2); Carbon Dioxide 25 mmol/L (22-30); Chloride 110 mmol/L (98-107); Estimated Creatinine Clearance 97 ml/min; Glucose 135 mg/dl (70-99); Potassium 4.0 mmol/L (3.5-5.1); Sodium 139 mmol/L (135-145); eGFR > 60.00
[2024-09-28 07:15] VITALS: BP 112/62
--- NOTE | 2024-09-28 07:33 | W.PN.GYN ---
Today's Communication / Plan
-
advance per primary team: colorectal surgery
ok to d/c rivera catheter
Physician Note
-
Assessment and Plan
64 yo woman POD 1 s/p robotic repair of CVF, posterior colporrhaphy, levator ani plication, perineoplasty: patient is doing well postop with minimal vaginal spotting
1. Postoperative care
Vaginal bleeding minimal, appropriate POD 1
Start vaginal estradiol 0.01% (estrace) twice weekly at time of home going, continue for the foreseeable future to aid with healing
D/c rivera catheter
CBC and BMP wnl for pod 1
ok to d/c per primary team (colorectal surgery)
Subjective:
no acute complaints
pain well controlled
denies emesis
denies fevers/chills
no heavy vaginal bleeding
rivera catheter in place
Objective:
Intake and Output
09/26/24 09/27/24 09/28/24 09/29/24
06:59 06:59 06:59 06:59
Intake Total 1880 / 1880
Output Total 1195 / 1195
Balance 685 / 685
Intake:
Oral fluids 780 / 780
IV piggybacks 1100 / 1100
Output:
Drain Output (Total) 95 / 95
Right [place] 95 / 95
Urine, Rivera 1100 / 1100
Vital Signs
Temp Pulse Resp BP Pulse Ox
98.7 F 86 18 119/64 93
09/28/24 03:32 09/28/24 03:32 09/28/24 03:32 09/28/24 03:32 09/28/24 03:32
Lab Results
09/28/24 05:52
09/28/24 05:52
Exam:
: rivera in place with clear urine, minimal spotting on pad, no active bleeding
[2024-09-28] MEDS: NORMOSOL-R/PLASMALYTE-A 1000 IV (07:48)
--- NOTE | 2024-09-28 10:06 | W.PN.CRS1 ---
Today's Communication / Plan
-
fulls
lovenox
relistor
dc rivera
vaginal cream
Assessment/Plan
-
POD#1 1) robotic sigmoidectomy with takedown of colovaginal fistula 2) flexible sigmoidoscopy
WBC 14.2, Hgb 10.7 (12.1)
-Advance diet to full liquids
-DC IVFs when tolerating po
-Vaginal cream apply daily
-Relistor added for blockage of constipation effects from opiates
-Pain control: Tylenol/Toradol standing, Dilaudid PRN
-DC rivera
-OOB as tolerated
-Lovenox tonight for DVT prophylaxis. TEDS/SDCS in place.
-GUERO drain to be removed prior to discharge
-OR pathology pending
Subjective Data
Subjective Data
Date of Service: September 28, 2024
Patient states she does not have any nausea. She has some pain but it is improved with pain medication. Overall she is feeling well and has no complaints.
Objective Data
-
Vital Signs
Temp Pulse Resp BP Pulse Ox
98.5 F 88 16 112/62 93
09/28/24 07:15 09/28/24 07:15 09/28/24 07:15 09/28/24 07:15 09/28/24 07:15
Intake & Output
09/27/24 09/28/24 09/29/24
06:59 06:59 06:59
Intake Total 1880 / 1880
Output Total 1195 / 1195
Balance 685 / 685
Intake:
Oral fluids 780 / 780
IV piggybacks 1100 / 1100
Output:
Drain Output (Total) 95 / 95
Right [place] 95
Urine, Rivera 1100 / 1100
Lab Results
09/28/24 05:52
09/28/24 05:52
Physical Exam
-
General: No Acute Distress and AOx3
Abdomen: Soft, Non Distended and Non Tender
Skin: Warm and Dry
Incision: Clear, Dry, Intact
--- NOTE | 2024-09-28 10:25 | CM ---
CM following re: discharge planning.
Reviewed pt's chart, met with pt.
Pt is a 64 year old female, admitted with primary dx of Colovaginal fistula, POD#1 1) robotic sigmoidectomy with takedown of colovaginal fistula 2) flexible sigmoidoscopy.
Pt reports she lives with and a son in [place], 3 steps to enter, lost one son. Emotional support offered and provided.
Pt described herself as independent in all areas [employer], has a cane and a walker, does not use them.
PCP: Rick Parnell
Pharmacy: [facility]
D/C plan: home with anticipated no needs. to transport at discharge.
CM will follow with discharge plan updates as hospitalization progresses
[2024-09-28] MEDS: RELISTOR 12 MG SC (10:51)
[2024-09-28 11:00] VITALS: BP 120/56
[2024-09-28] MEDS: DIOVAN PO (12:19)
[2024-09-28 15:34] VITALS: BP 122/61
[2024-09-28] MEDS: LOVENOX 40 MG SC (18:33)
[2024-09-28] MEDS: DILAUDID 0.25 MG IV (22:41)
[2024-09-28] MEDS: ESTRACE 0.01% VAGINAL CREAM VAG ×2 (22:42→23:33)
[2024-09-28 23:06] VITALS: BP 140/86
[2024-09-29] MEDS: TYLENOL PO ×4 (04:00→23:42)
[2024-09-29] MEDS: DILAUDID 0.25 MG IV (06:00)
[2024-09-29 06:16] VITALS: BMI 32.7
[2024-09-29 07:05] LABS: Hematocrit 30.9 % (37.0-47.0); Hemoglobin 10.2 g/dL (12.0-16.0); Mean Corp Hgb Conc. 33.0 g/dL (33.0-37.0); Mean Corpuscular Volume 84.9 fL (81.0-99.0); Nucleated Red Blood Cells % 0 %; Platelet Count 160 10^3/uL (130-400); Red Cell Dist. Width 13.2 % (11.5-14.5)
[2024-09-29 07:15] VITALS: BP 132/77
[2024-09-29 07:42] LABS: Blood Urea Nitrogen 7 mg/dl (7-17); Calcium 8.9 mg/dl (8.4-10.2); Carbon Dioxide 28 mmol/L (22-30); Chloride 109 mmol/L (98-107); Estimated Creatinine Clearance 83 ml/min; Glucose 104 mg/dl (70-99); Potassium 3.9 mmol/L (3.5-5.1); Sodium 139 mmol/L (135-145); eGFR > 60.00
[2024-09-29] MEDS: TYLENOL 650 MG PO ×2 (08:36→17:10)
[2024-09-29] MEDS: DIOVAN 160 MG PO (08:36)
[2024-09-29] MEDS: RELISTOR SC ×2 (08:40→08:43)
[2024-09-29] MEDS: TORADOL 15 MG IV ×3 (09:51→23:41)
--- NOTE | 2024-09-29 11:47 | W.PN.CRS1 ---
Today's Communication / Plan
-
LRD
Analgesics
Assessment/Plan
-
64 yo female presenting for surgical management of colovaginal fistula and rectocele
POD#2 robotic sigmoidectomy with takedown of colovaginal fistula 2) flexible sigmoidoscopy by CRS with robotic repair of vagina from colovaginal fistula, posterior colporrhaphy, perineoplasty by urogynecology
AFVSS
Labs stable, no leukocytosis
Acute anemia secondary to expected operative blood losses as well as hemodilution. Stable.
Good bowel recovery, tolerating dietary advancements
C/O rectal pain, not unexpected given her procedure
Voiding
Plan:
-Advance to LRD
-Vaginal cream apply daily
-Relistor for blockage of constipation effects from opiates
-Pain control: Tylenol/Toradol standing (has tolerated this NSAID in the past), Dilaudid and oxycodone PRN
-OOB as tolerated
-Lovenox for DVT prophylaxis. TEDS/SDCS in place.
-GUERO drain to be removed prior to discharge
-OR pathology pending
Tentative d/c tomorrow if pain improved and tolerating diet
Subjective Data
Procedure
09/27/24 1) robotic sigmoidectomy with takedown of colovaginal fistula 2) flexible sigmoidoscopy (Jazmyne)
Robotic repair of vagina from colovaginal fistula, posterior colporrhaphy, perineoplasty (Choco)
Subjective Data
Date of Service: September 29, 2024
Pt seen and examined at bedside with Dr. Samano. Denies n/v. Tolerating dietary advanced. Passing flatus. Passed some stool with blood but then a brown, nonbloody stool thereafter. Rectal/vaginal pain has been her primary area of discomfort.
Objective Data
-
Vital Signs
Temp Pulse Resp BP Pulse Ox
99.5 F 93 18 132/77 93
09/29/24 07:15 09/29/24 07:15 09/29/24 07:15 09/29/24 07:15 09/29/24 07:15
Intake & Output
09/28/24 09/29/24 09/30/24
06:59 06:59 06:59
Intake Total 1880 / 1880 480 / 480 480 / 480
Output Total 1195 / 1195 1475 / 1475
Balance 685 / 685 -995 / -995 455 / 455
Intake:
Oral fluids 780 / 780 480 / 480 480 / 480
IV piggybacks 1100 / 1100
Output:
Drain Output (Total) 125 / 125
Right [place] 125 / 125
Urine, Malone 1100 / 1100 850 / 850
Urine, Voided 500 / 500
Other:
Number of approximated SMALL 1
amounts of urine
Number of approximated MODERATE 2
amounts of urine
Lab Results
09/29/24 06:40
09/29/24 06:40
Physical Exam
-
General: No Acute Distress and AOx3
Abdomen: Soft, Non Distended and Non Tender
Skin: Warm and Dry
Incision: Clear, Dry, Intact and Other (GUERO with SSF)
[2024-09-29] MEDS: TORADOL IV (13:00)
[2024-09-29 16:24] VITALS: BP 137/75
[2024-09-29] MEDS: LOVENOX 40 MG SC (17:11)
[2024-09-29 19:10] VITALS: BP 130/71
[2024-09-29] MEDS: LOTRIMIN 1% CREAM 1 APPLIC TOPICAL (20:00)
[2024-09-29 23:03] VITALS: BP 100/56
[2024-09-29] MEDS: ESTRACE 0.01% VAGINAL CREAM 1 APPLIC VAG (23:41)
[2024-09-30] MEDS: TYLENOL PO (05:13)
[2024-09-30 06:00] VITALS: BMI 32.6
[2024-09-30] MEDS: TORADOL 15 MG IV (06:03)
[2024-09-30 07:15] VITALS: BP 134/73
[2024-09-30] MEDS: TYLENOL 650 MG PO (08:48)
[2024-09-30] MEDS: DIOVAN 160 MG PO (08:48)
[2024-09-30] MEDS: LOTRIMIN 1% CREAM 1 APPLIC TOPICAL (08:50)
[2024-09-30] MEDS: RELISTOR SC (09:39)
--- NOTE | 2024-09-30 10:08 | W.PN.CRS1 ---
Today's Communication / Plan
-
dispo planning
Assessment/Plan
-
64 yo female presenting for surgical management of colovaginal fistula and rectocele
POD#3 robotic sigmoidectomy with takedown of colovaginal fistula 2) flexible sigmoidoscopy by CRS with robotic repair of vagina from colovaginal fistula, posterior colporrhaphy, perineoplasty by urogynecology
AFVSS
Good bowel recovery, tolerating dietary advancements
No pain
Voiding
Plan:
-Advance to LRD
-Vaginal cream apply daily
-Relistor for blockage of constipation effects from opiates
-Analgesics prn
-OOB as tolerated
-Lovenox for DVT prophylaxis. TEDS/SDCS in place.
-GUERO drain removed
-OR pathology pending
dispo planning
Subjective Data
Procedure
09/27/24 1) robotic sigmoidectomy with takedown of colovaginal fistula 2) flexible sigmoidoscopy (Jazmyne)
Robotic repair of vagina from colovaginal fistula, posterior colporrhaphy, perineoplasty (hCoco)
Subjective Data
Date of Service: September 30, 2024
Pt seen and examined at bedside with Dr Samano. Denies n/v. Tolerating diet. No pain currently but notes occasional twinges. Passing flatus/bm's.
Objective Data
-
Vital Signs
Temp Pulse Resp BP Pulse Ox
98.7 F 79 18 134/73 97
09/30/24 07:15 09/30/24 07:15 09/30/24 07:15 09/30/24 07:15 09/30/24 07:15
Intake & Output
09/29/24 09/30/24 10/01/24
06:59 06:59 06:59
Intake Total 480 / 480 960 / 960 480 / 480
Output Total 1475 / 1475 /
Balance -995 / -995 885 / 885 480 / 480
Intake:
Oral fluids 480 / 480 960 / 960 480 / 480
Output:
Drain Output (Total) 125 / 125 75 / 75
Right [place] 125 / 125 75 / 75
Urine, Malone 850 / 850
Urine, Voided 500 / 500
Other:
Number of approximated SMALL 1
amounts of urine
Number of approximated MODERATE 2
amounts of urine
Lab Results
09/29/24 06:40
09/29/24 06:40
Physical Exam
-
General: No Acute Distress and AOx3
Abdomen: Soft, Non Distended and Non Tender
Skin: Warm, Dry and Other (rash under breasts)
Incision: Clear, Dry, Intact (dermabond) and Other (GUERO with SSF (removed))
--- NOTE | 2024-09-30 10:14 | W.DS.TRANS ---
Addendum entered and electronically signed by KEENAN Mckay 10/01/24 10:47:
dictated #[id number]
Original Note:
DC Summary - [employer]
-
Discharge Instructions:
Sleep Apnea Risk Low
Discharge Diagnosis/Procedures 1) robotic sigmoidectomy with takedown of
colovaginal fistula 2) flexible sigmoidoscopy
Diet Low Residue
Activity No strenuous activity
Additional Activity No lifting over 10lbs (gallon of milk)
Driving Restrictions No driving for 1 week
Bathing Restrictions OK to Shower
Wound Care Allow glue to naturally fall off. Do not pick at
incisions. Cover the site where your drain was
with dry gauze and change daily until drainage
no longer present then ok to leave the site open
to air. Ok to remove for showers.
Instructions: Low-fiber diet
Stand-Alone Forms:
Changes to Home Medications: No
Discharge Medications:
DC Medications w/original date entered in [employer]
valsartan 160 mg tablet 160 mg PO DAILY Blood Pressure 07/23/24
Multivitamin Gummies 1 gum PO DAILY 09/21/24
Simponi ARIA 1 dose IV Q8W Rheumatoid arthritis 09/21/24
acetaminophen 500 mg tablet 500 mg PO Q48H 09/21/24
naproxen sodium 220 mg tablet (Aleve) 220 mg PO Q48H 09/21/24
nystatin 100,000 unit/gram topical cream 1 applic topical BID #30 grams 09/30/24
Home Medication Changes
Pending Results: No
--- NOTE | 2024-09-30 10:43 | CM ---
CM following re: discharge planning.
Reviewed pt's chart, met with pt.
Discharge order noted. Pt is aware, expressed her agreement and pt stated her agreement with discharge and she stated her will transport home.
No after care VN services indicated.
Pt lives with and a son in [place] and pt is independent in all areas [employer].
D/C plan: home no needs. to transport.
[2024-09-30 11:00] VITALS: BP 127/70
== END 2024-09-30 12:09 | disposition home or self-care (01) | DRG 749 ==
LOC: 2 SOUTH 06:11
PROVIDERS: Physician Assistant; ADMITTING PHYSICIAN Surgery; FAMILY PHYSICIAN Family Medicine; REFERRING PHYSICIAN Obstetrics & Gynecology
PROC: 0JQC3ZZ Repair Pelvic Region Subcutaneous Tissue and Fascia, Percutaneous Approach (ICD-10-PCS; 2024-09-27)
PROC: 0DJD8ZZ Inspection of Lower Intestinal Tract, Via Natural or Artificial Opening Endoscopic (ICD-10-PCS; 2024-09-27)
PROC: 8E0W4CZ Robotic Assisted Procedure of Trunk Region, Percutaneous Endoscopic Approach (ICD-10-PCS; 2024-09-27)
PROC: 0DNN4ZZ Release Sigmoid Colon, Percutaneous Endoscopic Approach (ICD-10-PCS; 2024-09-27)
PROC: 0DBN4ZZ Excision of Sigmoid Colon, Percutaneous Endoscopic Approach (ICD-10-PCS; 2024-09-27)
DX: N81.6 Rectocele (principal); D62 Acute posthemorrhagic anemia; N82.3 Fistula of vagina to large intestine; N73.6 Female pelvic peritoneal adhesions (postinfective); K73.2 Chronic active hepatitis, not elsewhere classified
CPT/HCPCS: 36415; 80048; 80053; 83036; 83735; 85025; 85027; 85610; 85730; 86850; 86900; 86901; 88307; 93005; J1335